=== PATIENT | female | born 1945 | race Caucasian/White ===

== ENCOUNTER 2017-06-07 11:06 | Inpatient (IN) | payer OTHER, MEDICARE ==
[~2017-06-07] VITALS: Ht 152.4 cm; Wt 52.6 kg
[~2017-06-07 11:06] MED LIST: ALPH E MIXED PO; BIOTIN1000 MCG PO; CEPHALEXIN500 MG PO; MAGNESIUM OXID400 MG PO; PHARMASSURE PO; PROLIA60 MG/ML SC; SYNTHROID25 MCG PO; TUMS EX750 MG PO; TYLENOL #31 TAB PO; VITAMIN C500 M3 PO; VITAMIN D32000 I1 PO; VITAMIN K0.1 MG PO
[2017-06-07 13:12] LABS: ABSOLUTE BASOPHIL COUNT 0 /CUMM (0.0-0.2); ABSOLUTE EOSINOPHIL COUNT 0 /CUMM (0.0-0.7); ABSOLUTE GRANULOCYTE CT 19.9 /CUMM (1.4-6.5); ABSOLUTE LYMPH COUNT 1.1 /CUMM (1.2-3.4); ABSOLUTE MONOCYTE COUNT 2.5 /CUMM (0.10-0.60); BASOPHIL % 0.1 % (0.0-2.0); EOSINOPHIL % 0.1 % (0-5); GRANULOCYTE % 84.5 % (42.2-75.2); HEMATOCRIT 39.1 % (37-47); MEAN CORPUSCULAR HGB 29.1 PG (27.0-31.0); MEAN CORPUSCULAR HGB CONC 33.6 G/DL (33.0-37.0); MEAN CORPUSCULAR VOLUME 86.7 FL (81.0-99.0); MEAN PLATELET VOLUME 7.4 FL (7.4-10.4); PLATELET COUNT 325 /CUMM (130-400); RBC DISTRIBUTION WIDTH 13.5 % (11.5-14.5); RED BLOOD CELL CT 4.51 /CUMM (4.20-5.40); WHITE BLOOD CELL COUNT 23.6 /CUMM (4.8-10.8)
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
[2017-06-07] MEDS ORDERED: DICYCLOMINE HCL20 M1 PO (14:49)
[2017-06-07] MEDS ORDERED: ONDANSETRON HCL4 MG PO (14:49)
[2017-06-07] MEDS ORDERED: LOPERAMIDE2 M1 PO (14:50)
[2017-06-07] MEDS ORDERED: LIALDA1.2 G1 PO (14:50)
--- NOTE | 2017-06-07 16:56 | CT SCAN REPORT ---
EXAMINATION: CT ABDOMEN AND PELVIS WITH CONTRAST CLINICAL INFORMATION: Nausea, vomiting, and diarrhea with recent diagnosis of ulcerative colitis. COMPARISON: None available at the time of dictation. TECHNIQUE: Multidetector volumetric imaging was performed of the abdomen and pelvis following IV administration of 95 mL of Optiray 320 intravenous contrast. Sagittal and coronal reformatted images were obtained on the technologist's workstation. EXAMINATION: CT ABDOMEN AND PELVIS WITH IV CONTRAST FINDINGS: Mild atelectasis at the lung bases. The xiphoid process is elongated The liver, spleen, adrenal glands, and pancreas are normal. The gallbladder is surgically absent. There is mild intrahepatic bile or ductal dilatation, likely from the history of cholecystectomy. The kidneys exhibit symmetric nephrograms without evidence of hydronephrosis or nephrolithiasis. No focal renal lesions. There is a pancolitis extending from the cecum to the rectum with the entire colon exhibiting wall thickening, mucosal hyperenhancement, and associated with pericolonic inflammatory change. There are a few sigmoid diverticula. There is no free air. There are multiple enlarged mesenteric and retroperitoneal lymph nodes that are nonspecific, possibly reactive. The pelvic viscera are normal. No pelvic adenopathy. No free fluid within the pelvis. There are no acute osseous abnormalities. 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 Moderate disc volume loss at L4-L5. There is a right femoral epi. Old healed fracture of the right inferior pubic ramus and right pubic bone. Fat-containing ventral abdominal wall hernia. IMPRESSION: - Pancolitis extending from the cecum to the rectum. No bowel obstruction and no free air. - There are multiple enlarged mesenteric and retroperitoneal lymph nodes that are nonspecific, possibly reactive. - The gallbladder is surgically absent. 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 Moderate disc volume loss at L4-L5.
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
[2017-06-07 20:18] VITALS: BP 108/60
[2017-06-08 06:13] VITALS: BP 92/50
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
[2017-06-08 08:31] VITALS: BP 100/50
[2017-06-08 08:57] LABS: ABSOLUTE BASOPHIL COUNT 0 /CUMM (0.0-0.2); ABSOLUTE EOSINOPHIL COUNT 0 /CUMM (0.0-0.7); ABSOLUTE GRANULOCYTE CT 17.9 /CUMM (1.4-6.5); ABSOLUTE LYMPH COUNT 0.5 /CUMM (1.2-3.4); ABSOLUTE MONOCYTE COUNT 1.7 /CUMM (0.10-0.60); BASOPHIL % 0 % (0.0-2.0); EOSINOPHIL % 0 % (0-5); GRANULOCYTE % 89.1 % (42.2-75.2); MEAN CORPUSCULAR HGB 29.7 PG (27.0-31.0); MEAN CORPUSCULAR HGB CONC 33.7 G/DL (33.0-37.0); MEAN CORPUSCULAR VOLUME 88.2 FL (81.0-99.0); MEAN PLATELET VOLUME 7.8 FL (7.4-10.4); PLATELET COUNT 261 /CUMM (130-400); RBC DISTRIBUTION WIDTH 13.5 % (11.5-14.5); WHITE BLOOD CELL COUNT 20.1 /CUMM (4.8-10.8)
[2017-06-08 09:40] LABS: HEMATOCRIT 30.9 % (37-47)
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
[2017-06-08 15:27] VITALS: BP 100/58
[2017-06-08 22:42] VITALS: BP 100/70
[2017-06-09 06:21] VITALS: BP 108/68
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
[2017-06-09 09:16] LABS: ABSOLUTE BASOPHIL COUNT 0 /CUMM (0.0-0.2); ABSOLUTE EOSINOPHIL COUNT 0 /CUMM (0.0-0.7); ABSOLUTE LYMPH COUNT 0.7 /CUMM (1.2-3.4); ABSOLUTE MONOCYTE COUNT 1.6 /CUMM (0.10-0.60); BASOPHIL % 0 % (0.0-2.0); EOSINOPHIL % 0.2 % (0-5); GRANULOCYTE % 89.4 % (42.2-75.2); MEAN CORPUSCULAR HGB 29.3 PG (27.0-31.0); MEAN CORPUSCULAR HGB CONC 33.8 G/DL (33.0-37.0); MEAN CORPUSCULAR VOLUME 86.8 FL (81.0-99.0); PLATELET COUNT 278 /CUMM (130-400); RBC DISTRIBUTION WIDTH 14.1 % (11.5-14.5); RED BLOOD CELL CT 3.46 /CUMM (4.20-5.40); WHITE BLOOD CELL COUNT 22.4 /CUMM (4.8-10.8)
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
[2017-06-09 14:53] VITALS: BP 110/80
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
[2017-06-09 22:35] VITALS: BP 100/60
[2017-06-10 06:12] VITALS: BP 102/64
[2017-06-10 08:38] LABS: ABSOLUTE BASOPHIL COUNT 0 /CUMM (0.0-0.2); ABSOLUTE EOSINOPHIL COUNT 0 /CUMM (0.0-0.7); ABSOLUTE LYMPH COUNT 0.9 /CUMM (1.2-3.4); ABSOLUTE MONOCYTE COUNT 1.1 /CUMM (0.10-0.60); BASOPHIL % 0.1 % (0.0-2.0); EOSINOPHIL % 0 % (0-5); GRANULOCYTE % 90.9 % (42.2-75.2); HEMATOCRIT 29.8 % (37-47); MEAN CORPUSCULAR HGB 29.3 PG (27.0-31.0); MEAN CORPUSCULAR HGB CONC 33.5 G/DL (33.0-37.0); MEAN CORPUSCULAR VOLUME 87.5 FL (81.0-99.0); PLATELET COUNT 288 /CUMM (130-400); RBC DISTRIBUTION WIDTH 14.5 % (11.5-14.5); RED BLOOD CELL CT 3.41 /CUMM (4.20-5.40)
[2017-06-10 08:41] LABS: PT 17.6 SEC (9.4-12.5); PTT 26 SEC (25-37)
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
[2017-06-10 14:31] VITALS: BP 110/80
[2017-06-10 22:21] VITALS: BP 100/60
[2017-06-11 06:25] VITALS: BP 110/70
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
[2017-06-11 09:31] LABS: ABSOLUTE BASOPHIL COUNT 0 /CUMM (0.0-0.2); ABSOLUTE EOSINOPHIL COUNT 0.2 /CUMM (0.0-0.7); ABSOLUTE LYMPH COUNT 1.3 /CUMM (1.2-3.4); ABSOLUTE MONOCYTE COUNT 1.4 /CUMM (0.10-0.60); BASOPHIL % 0 % (0.0-2.0); EOSINOPHIL % 1.2 % (0-5); GRANULOCYTE % 81.7 % (42.2-75.2); HEMATOCRIT 29.8 % (37-47); MEAN CORPUSCULAR HGB 29.3 PG (27.0-31.0); MEAN CORPUSCULAR HGB CONC 33.7 G/DL (33.0-37.0); MEAN CORPUSCULAR VOLUME 87.1 FL (81.0-99.0); MEAN PLATELET VOLUME 7.7 FL (7.4-10.4); PLATELET COUNT 361 /CUMM (130-400); RBC DISTRIBUTION WIDTH 14.7 % (11.5-14.5); RED BLOOD CELL CT 3.42 /CUMM (4.20-5.40); WHITE BLOOD CELL COUNT 15.9 /CUMM (4.8-10.8)
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
[2017-06-11 15:04] VITALS: BP 110/80
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
[2017-06-11 23:00] VITALS: BP 112/80
[2017-06-12 06:39] VITALS: BP 128/70
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
[2017-06-12 09:26] LABS: ABSOLUTE BASOPHIL COUNT 0 /CUMM (0.0-0.2); ABSOLUTE EOSINOPHIL COUNT 0.3 /CUMM (0.0-0.7); ABSOLUTE GRANULOCYTE CT 18.6 /CUMM (1.4-6.5); ABSOLUTE LYMPH COUNT 1.3 /CUMM (1.2-3.4); ABSOLUTE MONOCYTE COUNT 1.3 /CUMM (0.10-0.60); BASOPHIL % 0.1 % (0.0-2.0); EOSINOPHIL % 1.4 % (0-5); GRANULOCYTE % 86.2 % (42.2-75.2); HEMATOCRIT 33.9 % (37-47); MEAN CORPUSCULAR HGB 29.2 PG (27.0-31.0); MEAN CORPUSCULAR HGB CONC 33.8 G/DL (33.0-37.0); MEAN CORPUSCULAR VOLUME 86.5 FL (81.0-99.0); MEAN PLATELET VOLUME 7.5 FL (7.4-10.4); PLATELET COUNT 422 /CUMM (130-400); RBC DISTRIBUTION WIDTH 14.4 % (11.5-14.5); RED BLOOD CELL CT 3.92 /CUMM (4.20-5.40); WHITE BLOOD CELL COUNT 21.5 /CUMM (4.8-10.8)
[2017-06-12 14:00] VITALS: BP 100/90
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
[2017-06-12 22:20] VITALS: BP 115/73
[2017-06-13 06:45] VITALS: BP 108/70
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
[2017-06-13 09:25] LABS: ABSOLUTE BASOPHIL COUNT 0 /CUMM (0.0-0.2); ABSOLUTE EOSINOPHIL COUNT 0.1 /CUMM (0.0-0.7); ABSOLUTE GRANULOCYTE CT 18.5 /CUMM (1.4-6.5); ABSOLUTE MONOCYTE COUNT 1.4 /CUMM (0.10-0.60); BASOPHIL % 0 % (0.0-2.0); EOSINOPHIL % 0.6 % (0-5); HEMATOCRIT 34.2 % (37-47); MEAN CORPUSCULAR HGB 28.9 PG (27.0-31.0); MEAN CORPUSCULAR HGB CONC 33.2 G/DL (33.0-37.0); MEAN CORPUSCULAR VOLUME 86.9 FL (81.0-99.0); MEAN PLATELET VOLUME 7.4 FL (7.4-10.4); PLATELET COUNT 502 /CUMM (130-400); RED BLOOD CELL CT 3.93 /CUMM (4.20-5.40); WHITE BLOOD CELL COUNT 21.1 /CUMM (4.8-10.8)
[2017-06-13 10:50] LABS: GRANULOCYTE % 87.9 % (42.2-75.2)
[2017-06-13 16:45] VITALS: BP 100/60
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
[2017-06-13 22:20] VITALS: BP 116/72
[2017-06-14 06:44] VITALS: BP 94/62
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
[2017-06-14 09:44] LABS: ABSOLUTE BASOPHIL COUNT 0 /CUMM (0.0-0.2); ABSOLUTE EOSINOPHIL COUNT 0.2 /CUMM (0.0-0.7); ABSOLUTE GRANULOCYTE CT 20.3 /CUMM (1.4-6.5); ABSOLUTE LYMPH COUNT 1.1 /CUMM (1.2-3.4); ABSOLUTE MONOCYTE COUNT 1.6 /CUMM (0.10-0.60); BASOPHIL % 0 % (0.0-2.0); EOSINOPHIL % 1.1 % (0-5); HEMATOCRIT 37.2 % (37-47); MEAN CORPUSCULAR HGB CONC 33.3 G/DL (33.0-37.0); MEAN PLATELET VOLUME 7.4 FL (7.4-10.4); RED BLOOD CELL CT 4.28 /CUMM (4.20-5.40); WHITE BLOOD CELL COUNT 23.2 /CUMM (4.8-10.8)
[2017-06-14 10:41] LABS: GRANULOCYTE % 87.2 % (42.2-75.2); PLATELET COUNT 555 /CUMM (130-400)
[2017-06-14 14:39] VITALS: BP 95/60
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
[2017-06-14 22:14] VITALS: BP 100/64
--- NOTE | 2017-06-14 22:40 | PN- Gastroenterology ---
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 L MCV (81.0 - 99.0 FL) 86.5 MCH (27.0 - 31.0 PG) 29.2 MCHC (33.0 - 37.0 G/DL) 33.8 RDW (11.5 - 14.5 %) 14.4 Plt Count (130 - 400 /CUMM) 422 H MPV (7.4 - 10.4 FL) 7.5 Gran % (42.2 - 75.2 %) 86.2 H Lymphocytes % (20.5 - 51.1 %) 6.2 L Monocytes % (1.7 - 9.3 %) 6.1 Eosinophils % (0 - 5 %) 1.4 Basophils % (0.0 - 2.0 %) 0.1 Absolute Granulocytes (1.4 - 6.5 /CUMM) 18.6 H Segmented Neutrophils (42.2 - 75.2 %) 83 H Band Neutrophils (0.0 - 5.0 %) 1 Absolute Lymphocytes (1.2 - 3.4 /CUMM) 1.3 Lymphocytes (20.5 - 51.1 %) 7 L Monocytes (1.7 - 9.3 %) 6 Absolute Monocytes (0.10 - 0.60 /CUMM) 1.3 H Eosinophils (0 - 5.0 %) 1 Absolute Eosinophils (0.0 - 0.7 /CUMM) 0.3 Absolute Basophils (0.0 - 0.2 /CUMM) 0 Metamyelocytes (0.0 - 1.0 %) 1 Myelocytes (0 - 0 %) 1 H Platelet Estimate (ADEQUATE) VERIFIED BY SMEAR Polychromasia 1+ Anisocytosis 1+ Imaging/Other Studies: 06/07/17: EKG-ST @ 114, baseline artifact, mild inf Q waves, NSST, PRWP. 06/07/17: CT ABD & PELVIS W IV CONTRAST- IMPRESSION: *Pancolitis extending from the cecum to the rectum. No bowel obstruction and no free air. No megacolon. Few sigmoid diverticula, without diverticulitis. Fat-containing ventral abdominal wall hernia. There are multiple enlarged mesenteric and retroperitoneal lymph nodes that are nonspecific, possibly reactive. No ascites. The gallbladder is surgically absent. Mild postop dilated IHD. Mild bibasilar atelectasis. Right femoral epi. Old healed fracture of the right inferior pubic ramus and right pubic bone. 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 Moderate disc volume loss at L4-L5.
[2017-06-15 06:49] VITALS: BP 100/68
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
[2017-06-15 09:16] LABS: ABSOLUTE BASOPHIL COUNT 0 /CUMM (0.0-0.2); ABSOLUTE EOSINOPHIL COUNT 0.1 /CUMM (0.0-0.7); ABSOLUTE GRANULOCYTE CT 19.3 /CUMM (1.4-6.5); ABSOLUTE LYMPH COUNT 0.7 /CUMM (1.2-3.4); ABSOLUTE MONOCYTE COUNT 1.1 /CUMM (0.10-0.60); BASOPHIL % 0.1 % (0.0-2.0); EOSINOPHIL % 0.3 % (0-5); HEMATOCRIT 35.6 % (37-47); MEAN CORPUSCULAR HGB CONC 33.2 G/DL (33.0-37.0); MEAN CORPUSCULAR VOLUME 87.4 FL (81.0-99.0); MEAN PLATELET VOLUME 7.2 FL (7.4-10.4); PLATELET COUNT 647 /CUMM (130-400); RBC DISTRIBUTION WIDTH 14.8 % (11.5-14.5); RED BLOOD CELL CT 4.07 /CUMM (4.20-5.40); WHITE BLOOD CELL COUNT 21.2 /CUMM (4.8-10.8)
--- NOTE | 2017-06-15 10:48 | PN- Infect Dx ---
Subjective Subjective: Afebrile. She offers no complaints but continues to have watery diarrhea, with 7 bowel movements reported yesterday and 2 overnight. She does not report any abdominal discomfort. Objective Last 24 Hrs of Vital Signs/I&O Vital Signs Date Time Temp Pulse Resp B/P B/P Pulse O2 O2 Flow FiO2 Mean Ox Delivery Rate 06/15 0649 98.1 114 20 100/68 97 Room Air 06/14 2214 98.0 107 22 100/64 96 Room Air 06/14 1439 98.5 85 20 95/60 95 Intake & Output 06/15 1600 06/15 0800 06/15 0000 Intake Total 250 Output Total 300 Balance -50 Intake, Oral 250 Number 2 1 Bowel Movements Output, Urine 300 Physical Exam Other Physical Findings: She appears comfortable in no acute distress Lungs are clear Heart regular rhythm with no murmur Abdomen is soft, nontender with positive bowel sounds Extremities no cyanosis, clubbing or edema Results Last 24 Hours of Lab Results: Laboratory Tests 06/15 0840 Chemistry Sodium (137 - 145 mmol/L) 138 Potassium (3.5 - 5.1 mmol/L) 3.9 Chloride (98 - 107 mmol/L) 97 L Carbon Dioxide (22 - 30 mmol/L) 23 Anion Gap (5 - 16) 18 H BUN (7 - 17 mg/dL) 9 Creatinine (0.5 - 1.0 mg/dL) 0.5 Estimated GFR (>60 ml/min) > 60 BUN/Creatinine Ratio (7 - 25 %) 18.0 Total Bilirubin (0.2 - 1.3 mg/dL) 0.6 Direct Bilirubin (< 0.4 mg/dL) 0.5 H AST (14 - 36 U/L) 13 L ALT (9 - 52 U/L) 21 Alkaline Phosphatase (<127 U/L) 115 Total Protein (6.3 - 8.2 g/dL) 6.4 Albumin (3.5 - 5.0 g/dL) 2.8 L Hematology CBC w Diff MAN DIFF ORDERED WBC (4.8 - 10.8 /CUMM) 21.2 H RBC (4.20 - 5.40 /CUMM) 4.07 L Hgb (12.0 - 16.0 G/DL) 11.8 L Hct (37 - 47 %) 35.6 L MCV (81.0 - 99.0 FL) 87.4 MCH (27.0 - 31.0 PG) 29.0 MCHC (33.0 - 37.0 G/DL) 33.2 RDW (11.5 - 14.5 %) 14.8 H Plt Count (130 - 400 /CUMM) 647 H MPV (7.4 - 10.4 FL) 7.2 L Gran % (42.2 - 75.2 %) 91.0 H Lymphocytes % (20.5 - 51.1 %) 3.3 L Monocytes % (1.7 - 9.3 %) 5.3 Eosinophils % (0 - 5 %) 0.3 Basophils % (0.0 - 2.0 %) 0.1 Absolute Granulocytes (1.4 - 6.5 /CUMM) 19.3 H Segmented Neutrophils (42.2 - 75.2 %) 84 H Band Neutrophils (0.0 - 5.0 %) 5 Absolute Lymphocytes (1.2 - 3.4 /CUMM) 0.7 L Lymphocytes (20.5 - 51.1 %) 6 L Monocytes (1.7 - 9.3 %) 5 Absolute Monocytes (0.10 - 0.60 /CUMM) 1.1 H Absolute Eosinophils (0.0 - 0.7 /CUMM) 0.1 Absolute Basophils (0.0 - 0.2 /CUMM) 0 Platelet Estimate (ADEQUATE) INCREASED Normocytic RBCs VERIFIED Normochromic RBCs VERIFIED Polychromasia Last 24 Hours of Thomas Results: No recent cultures Assessment/Plan ID Impression: Stable, with temperatures remaining normal but with a persistent leukocytosis, now on po Vancomycin, began yesterday after 5 days of Fidaxomicin and Flagyl, for C. difficile colitis, though suspect that her persistent diarrhea and leukocytosis may be secondary to ulcerative colitis, not responsive to both oral and rectal mesalamine. She is scheduled for a flexible sigmoidoscopy later today, which should help clarify the etiology of her persistent diarrhea. Suggestion: 1. Await sigmoidoscopy later today 2. Continue po Vancomycin
--- NOTE | 2017-06-15 13:32 | Proc Note Colonoscopy ---
Colonoscopy Procedure Medical History: unchanged (see meditech consult) Mental Status: alert/oriented Heart/Lung Eval Prior to Sedation: within normal limits Candidate for Sedation? Yes Date of Last Colonoscopy: Approximately one month ago in [place]. Procedure Date: 06/15/17 Procedure Type: flexible sigmoidoscopy with biopsies. Can Maker: Frank Buitrago MD. ASA Classification: III Indications: Diarrhea in a patient with newly diagnosed ulcerative colitis and also found to have c. diff by PCR in spite of a negative stool toxin. Instrument (Colonoscope): single channel Meds Received: MAC Patient's Tolerance: good Complications: none Extent Reached: 70 cm from the anus Prep: good Procedure: The risks of a colonoscopy was explained to the patient including, but not limited to, the risks of perforation, bleeding and/or a missed lesion and then written informed consent was obtained. After getting written informed consent the patient was placed in the left lateral decubitus position with pulse oximetry, cardiac monitoring, and supplemental oxygen was given. IV sedation was given until the desired effect was achieved. A rectal exam was performed which was normal. A high definition variable stiffness Olympus colonoscope was then inserted into the anus and advanced to 70 cm from the anus with little difficulty. Retroflexed views were obtained and photodocumentation was obtained. Close inspection of the colonic mucosa was performed on insertion and withdrawal of the colonoscope with a withdrawal time that was adequate in length to closely inspect all folds and russo of the colon. Findings: The colonic mucosa starting in the rectum and extending to 70 cm from the anus was inflamed with a cobblestone appearance and superficial ulcerations. In some areas there was an overlying exudate which easily washed away when irrigated and there were no obvious pseudomembranes appreciated. The inflammatory changes were continuous from the rectum to 70 cm from the anus with the changes being more pronounced proximal to 30 cm from the anus. Random biopsies were obtained from the colon at 70 cm, 50 cm, 30 cm, in the rectosigmoid colon and rectum with cold biopsy forceps and were sent to pathology for further evaluation. There was an isolated diverticulum appreciated in the sigmoid colon. There were no polyps or masses seen. Retroflexed views in the rectum revealed small internal hemorrhoids with hypertrophied anal papilla. Impression: 1. Findings suggestive of active ulcerative colitis with relative sparing in the rectum likely secondary to the enemas she is receiving status post random biopsies. 2. Overlying exudate, but no obvious pseudomembranes appreciated. 3. Mild sigmoid diverticulosis. 3. Small internal hemorrhoids with hypertophied anal papilla. Recommendations: 1. Would continue maximum dose oral mesalamine and [place] enemas at night. 2. Would complete a 14 day course of vancomycin for C. difficile. 3. Follow up the pathology results 3. If patient's diarrhea persists in spite of of 5-ASA preparations and treatment for C. difficile strong consideration should be given to restart the patient's IV steroids (got one dose in the ER). 4. Low residue diet as tolerated. 5. Analgesia as needed. 6. Would avoid anti-diarrheal agents at present so that her symptoms can be more accurately followed. CC: Carolynn DE LA GARZA,Stefano Baez
[2017-06-15 14:13] VITALS: BP 100/70
[2017-06-15 23:17] VITALS: BP 114/68
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
[2017-06-16 06:41] VITALS: BP 104/64
[2017-06-16 09:04] LABS: ABSOLUTE BASOPHIL COUNT 0 /CUMM (0.0-0.2); ABSOLUTE EOSINOPHIL COUNT 0 /CUMM (0.0-0.7); ABSOLUTE GRANULOCYTE CT 12.4 /CUMM (1.4-6.5); ABSOLUTE LYMPH COUNT 0.5 /CUMM (1.2-3.4); ABSOLUTE MONOCYTE COUNT 0.2 /CUMM (0.10-0.60); BASOPHIL % 0 % (0.0-2.0); EOSINOPHIL % 0 % (0-5); GRANULOCYTE % 94.1 % (42.2-75.2); HEMATOCRIT 34.3 % (37-47); MEAN CORPUSCULAR HGB 28.9 PG (27.0-31.0); MEAN CORPUSCULAR HGB CONC 33.5 G/DL (33.0-37.0); MEAN CORPUSCULAR VOLUME 86.5 FL (81.0-99.0); MEAN PLATELET VOLUME 7.1 FL (7.4-10.4); PLATELET COUNT 652 /CUMM (130-400); RBC DISTRIBUTION WIDTH 15.4 % (11.5-14.5); RED BLOOD CELL CT 3.97 /CUMM (4.20-5.40)
--- NOTE | 2017-06-16 09:09 | PN- Gastroenterology ---
Assessment/Plan GI Assessment/Recommendations: Assessment: Ms. Robertson is a 71 year old female recently diagnosed with ulcerative colitis on a colonoscopy in [place] who has been admitted with a flare for the past week which at least in part is exacerbated by superimposed c. diff colitis. Her flex sig yesterday showed changes more consistent with an IBD flare so I feel her colitis treatment should be stepped up with systemic steroids which were started last night. I also feel she should have continued treatment of her c. diff with oral vanco. While there is a concern that the steroids could exacerbate the c. diff there is really no strong data to support this and considering she has been on treatment for c. diff now for the past 6-7 days I feel the potential benefit of steroids outweighs the risks. Recommendations: 1. Continue IV solumederol 40mg bid fow now 2. Continue PO vanco as per ID. 3. Ok to continue questran, but would make sure it is given inbetween doses of the vanco and mesalamine as to not interfere with their absorption. 4. Continue mesalamine PO and enemas 5. Would check a hep b [place] and a interferon gamma assay in case biologics are ultimately needed. 6. Follow up lytes and replete as needed 7. Analgesia as needed. 8. Low residue diet as tolerated. I will continue to follow this patient and make further recommendations based on her clinical course and results of repeat blood work. Subjective Subjective: pt s/p flex sig yesterday which showed cameron-colitis more consistent in appearance with UC then c. diff (ie. no pseudomembranes). She was started on IV solumederol last night and so far has recieved one dose. She continues to complain of diarrhea without significant bleeding. Mild abdominal discomfort. No vomiting. Objective Vital Signs and I&Os Vital Signs Date Time Temp Pulse Resp B/P B/P Pulse O2 O2 Flow FiO2 Mean Ox Delivery Rate 06/16 0641 98.1 84 18 104/64 96 Room Air 06/15 2317 98.4 84 16 114/68 95 Room Air 06/15 1413 98.2 86 20 100/70 95 Room Air Intake & Output 06/16 1600 06/16 0400 06/15 1600 06/15 0400 06/14 1600 06/14 0400 Intake Total 240 240 250 330 300 Output Total 300 450 300 Balance 240 240 -50 -120 0 Intake, Oral 240 240 250 330 300 Number 0 2 2 1 6 2 Bowel Movements Output, Urine 300 450 300 Physical Exam General Appearance: well developed/nourished, no apparent distress, alert, comfortable Head: atraumatic Neck: normal inspection, supple Respiratory: normal breath sounds, chest non-tender Cardiovascular: regular rate/rhythm Abdomen: normal bowel sounds, soft, tenderness, mild tenderness to deep palpation. Back: normal inspection Extremities: pedal edema Skin: intact, normal color Current Medications: Current Medications Sig/Franklyn Start time Last Medication Dose Route Stop Time Status Admin Acetaminophen 650 MG Q6-PRN PRN 06/07 2100 AC 06/08 PO 1813 Chlorhexidine 1 GM .STK-MED ONE 06/15 1417 DC Gluconate TOP 06/15 1418 Cholestyramine Resin 1 PAC WMBID 06/13 1700 DC 06/15 PO 1401 Dextrose/Sodium 1,000 ML Q10H 06/15 1000 DC 06/15 Chloride IV 1014 Dicyclomine HCl 20 MG 4 TIMES/DAY 06/07 2100 DC 06/15 PO 1400 Enoxaparin Sodium 40 MG DAILY 06/08 0900 AC 06/15 SC 1011 Levothyroxine Sodium 0.025 MG DAILY AC 06/08 0700 AC 06/16 PO 0544 Mesalamine 4 GM AT BEDTIME 06/09 2100 AC 06/15 [place] 2111 Mesalamine 1,000 MG 4 TIMES/DAY 06/08 0900 AC 06/15 PO 2111 Methylprednisolone 40 MG Q12 06/15 2100 AC 06/15 IV 2111 Nystatin 5 ML 4 TIMES/DAY 06/15 1433 AC 06/15 PO 2111 Ondansetron HCl 4 MG Q8P PRN 06/07 1915 AC 06/15 IV 1409 Potassium Chloride 40 MEQ DAILY 06/09 1630 AC 06/15 PO 1011 Vancomycin HCl 125 MG Q6 06/14 1816 AC 06/16 PO 0544 Results Pertinent Lab Results: Laboratory Tests 06/16 06/15 0836 0840 Chemistry Sodium (137 - 145 mmol/L) Pending 138 Potassium (3.5 - 5.1 mmol/L) Pending 3.9 Chloride (98 - 107 mmol/L) Pending 97 L Carbon Dioxide (22 - 30 mmol/L) Pending 23 Anion Gap (5 - 16) Pending 18 H BUN (7 - 17 mg/dL) Pending 9 Creatinine (0.5 - 1.0 mg/dL) Pending 0.5 Estimated GFR (>60 ml/min) > 60 BUN/Creatinine Ratio (7 - 25 %) Pending 18.0 Total Bilirubin (0.2 - 1.3 mg/dL) Pending 0.6 Direct Bilirubin (< 0.4 mg/dL) Pending 0.5 H AST (14 - 36 U/L) Pending 13 L ALT (9 - 52 U/L) Pending 21 Alkaline Phosphatase (<127 U/L) Pending 115 Total Protein (6.3 - 8.2 g/dL) Pending 6.4 Albumin (3.5 - 5.0 g/dL) Pending 2.8 L Hematology CBC w Diff Pending MAN DIFF ORDERED WBC (4.8 - 10.8 /CUMM) Pending 21.2 H RBC (4.20 - 5.40 /CUMM) Pending 4.07 L Hgb (12.0 - 16.0 G/DL) Pending 11.8 L Hct (37 - 47 %) Pending 35.6 L MCV (81.0 - 99.0 FL) Pending 87.4 MCH (27.0 - 31.0 PG) Pending 29.0 MCHC (33.0 - 37.0 G/DL) Pending 33.2 RDW (11.5 - 14.5 %) Pending 14.8 H Plt Count (130 - 400 /CUMM) Pending 647 H MPV (7.4 - 10.4 FL) Pending 7.2 L Gran % (42.2 - 75.2 %) 91.0 H Lymphocytes % (20.5 - 51.1 %) 3.3 L Monocytes % (1.7 - 9.3 %) 5.3 Eosinophils % (0 - 5 %) 0.3 Basophils % (0.0 - 2.0 %) 0.1 Absolute Granulocytes (1.4 - 6.5 /CUMM) 19.3 H Segmented Neutrophils (42.2 - 75.2 %) 84 H Band Neutrophils (0.0 - 5.0 %) 5 Absolute Lymphocytes (1.2 - 3.4 /CUMM) 0.7 L Lymphocytes (20.5 - 51.1 %) 6 L Monocytes (1.7 - 9.3 %) 5 Absolute Monocytes (0.10 - 0.60 /CUMM) 1.1 H Absolute Eosinophils (0.0 - 0.7 /CUMM) 0.1 Absolute Basophils (0.0 - 0.2 /CUMM) 0 Platelet Estimate (ADEQUATE) INCREASED Normocytic RBCs VERIFIED Normochromic RBCs VERIFIED Polychromasia 06/14 06/13 0827 1352 Chemistry Sodium (137 - 145 mmol/L) 136 L Potassium (3.5 - 5.1 mmol/L) 4.1 Chloride (98 - 107 mmol/L) 97 L Carbon Dioxide (22 - 30 mmol/L) 24 Anion Gap (5 - 16) 15 BUN (7 - 17 mg/dL) 8 Creatinine (0.5 - 1.0 mg/dL) 0.5 Estimated GFR (>60 ml/min) > 60 BUN/Creatinine Ratio (7 - 25 %) 16.0 Hematology CBC w Diff NO MAN DIFF REQ WBC (4.8 - 10.8 /CUMM) 23.2 H RBC (4.20 - 5.40 /CUMM) 4.28 Hgb (12.0 - 16.0 G/DL) 12.4 Hct (37 - 47 %) 37.2 MCV (81.0 - 99.0 FL) 87.0 MCH (27.0 - 31.0 PG) 29.0 MCHC (33.0 - 37.0 G/DL) 33.3 RDW (11.5 - 14.5 %) 15.0 H Plt Count (130 - 400 /CUMM) 555 H MPV (7.4 - 10.4 FL) 7.4 Gran % (42.2 - 75.2 %) 87.2 H Lymphocytes % (20.5 - 51.1 %) 4.8 L Monocytes % (1.7 - 9.3 %) 6.9 Eosinophils % (0 - 5 %) 1.1 Basophils % (0.0 - 2.0 %) 0 Absolute Granulocytes (1.4 - 6.5 /CUMM) 20.3 H Absolute Lymphocytes (1.2 - 3.4 /CUMM) 1.1 L Absolute Monocytes (0.10 - 0.60 /CUMM) 1.6 H Absolute Eosinophils (0.0 - 0.7 /CUMM) 0.2 Absolute Basophils (0.0 - 0.2 /CUMM) 0 Urines Urine Color (YEL,AMB,STR) YEL Urine Clarity (CLEAR) CLEAR Urine pH (5.0 - 8.0) 6.5 Ur Specific [place] (1.001 - 1.035) 1.025 Urine Protein (NEG,<30 MG/DL) TRACE H Urine Ketones (NEG) 40 H Urine Nitrite (NEG) POS H Urine Bilirubin (NEG) NEG Urine Urobilinogen (0.1 - 1.0 EU/dl) 0.2 Ur Leukocyte Esterase (NEG) NEG Ur Microscopic SEDIMENT EXAMINED Urine WBC (0 - 2 /HPF) 1-3 H Ur Epithelial Cells (NONE,FEW) FEW Urine Bacteria (NEG/NONE) FEW H Urine Hemoglobin (NEG) NEG Urine Glucose (N MG/DL) NEG 06/13 1352 Urines Urine Osmolality (300 - 1000 MOSM/KG) 590 Ur Random Creatinine (mg/dL) 79.6 Ur Random Sodium (30 - 90 mmol/L) 156 H Ur Random Potassium (mmol/L) 27.2 Fraction Sodium Excret (<1% %) 0.6
[2017-06-16 10:42] LABS: WHITE BLOOD CELL COUNT 13.1 /CUMM (4.8-10.8)
[2017-06-16 14:36] VITALS: BP 118/68
--- NOTE | 2017-06-16 15:09 | PN- Att Addend ---
Attending Addendum Attending Brief Note Covering attending note: Patient feeling a little better, trying to eat as much as possible, not much pain patient is afebrile, her vital signs are stable. Earlier this morning she had a diarrheal bowel movement around lunchtime had for the first time a soft bowel movement. Her abdomen is soft white count is 13,100 to continue meant as per GI and infectious diseases recommendations Intake & Output 06/16 1600 06/16 0400 06/15 0400 06/14 1600 06/14 0400 Intake Total 240 240 250 330 300 Output Total 300 450 300 Balance 240 240 -50 -120 0 Intake, Oral 240 240 250 330 300 Number 2 2 2 1 6 2 Bowel Movements Output, Urine 300 450 300 Current Medications Sig/Frank[place] Start time Last Medication Dose Route Stop Time Status Admin Acetaminophen 650 MG Q6-PRN PRN 06/07 2099 AC 06/08 PO 1813 Dextrose/Sodium 1,000 ML Q10H 06/15 1000 DC 06/15 Chloride IV 1014 Enoxaparin Sodium 40 MG DAILY 06/08 09 AC 06/16 SC 0941 Levothyroxine Sodium 0.025 MG DAILY AC 06/08 0700 AC 06/16 PO 0544 Mesalamine 4 GM AT BEDTIME 06/09 2099 AC 06/15 [place] 2111 Mesalamine 1,000 MG 4 TIMES/DAY 06/08 09 AC 06/16 PO 1233 Methylprednisolone 40 MG Q12 06/15 2100 AC 06/16 IV 0944 Nystatin 5 ML 4 TIMES/DAY 06/15 1433 AC 06/16 PO 1233 Ondansetron HCl 4 MG Q8P PRN 06/07 1915 AC 06/15 IV 1409 Potassium Chloride 40 MEQ DAILY 06/09 1630 AC 06/16 PO 0942 Vancomycin HCl 125 MG Q6 06/14 1816 AC 06/16 PO 1233 Laboratory Tests 06/16/17 0836: Anion Gap 13, Estimated GFR > 60, BUN/Creatinine Ratio 20.0, Total Bilirubin 0.5 , Direct Bilirubin 0.5 H, AST 11 L, ALT 19, Alkaline Phosphatase 102, Total Protein 6.1 L, Albumin 2.7 L, CBC w Diff NO MAN DIFF REQ, RBC 3.97 L, MCV 86.5, MCH 28.9, MCHC 33.5, RDW 15.4 H, MPV 7.1 L, Gran % 94.1 H, Lymphocytes % 4.1 L, Monocytes % 1.8, Eosinophils % 0, Basophils % 0, Absolute Granulocytes 12.4 H, Absolute Lymphocytes 0.5 L, Absolute Monocytes 0.2, Absolute Eosinophils 0, Absolute Basophils 0 06/15/17 0840: Anion Gap 18 H, Estimated GFR > 60, BUN/Creatinine Ratio 18.0, Total Bilirubin 0.6, Direct Bilirubin 0.5 H, AST 13 L, ALT 21, Alkaline Phosphatase 115, Total Protein 6.4, Albumin 2.8 L, CBC w Diff MAN DIFF ORDERED, RBC 4.07 L, MCV 87.4, MCH 29.0, MCHC 33.2, RDW 14.8 H, MPV 7.2 L, Gran % 91.0 H, Lymphocytes % 3.3 L, Monocytes % 5.3, Eosinophils % 0.3, Basophils % 0.1, Absolute Granulocytes 19.3 H, Segmented Neutrophils 84 H, Band Neutrophils 5, Absolute Lymphocytes 0.7 L, Lymphocytes 6 L, Monocytes 5, Absolute Monocytes 1.1 H, Absolute Eosinophils 0.1, Absolute Basophils 0, Platelet Estimate INCREASED, Normocytic RBCs VERIFIED, Normochromic RBCs VERIFIED, Polychromasia 06/14/17 0827: Anion Gap 15, Estimated GFR > 60, BUN/Creatinine Ratio 16.0, CBC w Diff NO MAN DIFF REQ, RBC 4.28, MCV 87.0, MCH 29.0, MCHC 33.3, RDW 15.0 H, MPV 7.4, Gran % 87.2 H, Lymphocytes % 4.8 L, Monocytes % 6.9, Eosinophils % 1.1, Basophils % 0 , Absolute Granulocytes 20.3 H, Absolute Lymphocytes 1.1 L, Absolute Monocytes 1.6 H, Absolute Eosinophils 0.2, Absolute Basophils 0 Vital Signs Date Time Temp Pulse Resp B/P B/P Pulse O2 O2 Flow FiO2 Mean Ox Delivery Rate 06/16 1436 97.8 110 20 118/68 96 06/16 0800 96 Room Air 06/16 0641 98.1 84 18 104/64 96 Room Air 06/15 2317 98.4 84 16 114/68 95 Room Air
[2017-06-16 22:58] VITALS: BP 100/62
[2017-06-17 06:55] VITALS: BP 104/70
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
[2017-06-17 09:17] LABS: ABSOLUTE BASOPHIL COUNT 0 /CUMM (0.0-0.2); ABSOLUTE EOSINOPHIL COUNT 0 /CUMM (0.0-0.7); ABSOLUTE GRANULOCYTE CT 11.6 /CUMM (1.4-6.5); ABSOLUTE LYMPH COUNT 0.8 /CUMM (1.2-3.4); ABSOLUTE MONOCYTE COUNT 0.3 /CUMM (0.10-0.60); BASOPHIL % 0 % (0.0-2.0); EOSINOPHIL % 0 % (0-5); GRANULOCYTE % 91.3 % (42.2-75.2); MEAN CORPUSCULAR HGB 28.7 PG (27.0-31.0); MEAN CORPUSCULAR HGB CONC 33.2 G/DL (33.0-37.0); MEAN CORPUSCULAR VOLUME 86.5 FL (81.0-99.0); MEAN PLATELET VOLUME 7.3 FL (7.4-10.4); PLATELET COUNT 781 /CUMM (130-400); RBC DISTRIBUTION WIDTH 15.1 % (11.5-14.5); RED BLOOD CELL CT 4.05 /CUMM (4.20-5.40); WHITE BLOOD CELL COUNT 12.7 /CUMM (4.8-10.8)
--- NOTE | 2017-06-17 10:10 | PN- Infect Dx ---
Subjective Subjective: Afebrile on steroids. She feels improved with decreased diarrhea. Objective Last 24 Hrs of Vital Signs/I&O Vital Signs Date Time Temp Pulse Resp B/P B/P Pulse O2 O2 Flow FiO2 Mean Ox Delivery Rate 06/17 0655 97.9 98 16 104/70 96 Room Air 06/16 2258 97.6 100 20 100/62 96 Room Air 06/16 1436 97.8 110 20 118/68 96 Intake & Output 06/17 1600 06/17 0800 06/17 0000 Intake Total 120 120 Output Total 201 Balance 120 -81 Intake, IV 20 20 Intake, Oral 100 100 Number 1 Bowel Movements Output, Stool 1 Output, Urine 200 Physical Exam Other Physical Findings: She appears comfortable in no acute distress Lungs are clear Heart rapid heart rate with no murmur Abdomen is soft, nontender with positive bowel sounds Extremities no cyanosis, clubbing or edema Results Last 24 Hours of Lab Results: Laboratory Tests 06/17 06/17 0909 0755 Chemistry Sodium (137 - 145 mmol/L) 139 Potassium (3.5 - 5.1 mmol/L) 5.1 Chloride (98 - 107 mmol/L) 99 Carbon Dioxide (22 - 30 mmol/L) 25 Anion Gap (5 - 16) 15 BUN (7 - 17 mg/dL) 18 H Creatinine (0.5 - 1.0 mg/dL) 0.5 Estimated GFR (>60 ml/min) > 60 BUN/Creatinine Ratio (7 - 25 %) 36.0 H Troponin I (< 0.11 ng/ml) Cancelled < 0.01 Hematology CBC w Diff Pending WBC Pending RBC Pending Hgb Pending Hct Pending MCV Pending MCH Pending MCHC Pending RDW Pending Plt Count Pending MPV Pending Gran % Pending Lymphocytes % Pending Monocytes % Pending Eosinophils % Pending Basophils % Pending Absolute Granulocytes Pending Absolute Lymphocytes Pending Absolute Monocytes Pending Absolute Eosinophils Pending Absolute Basophils Pending Last 24 Hours of Thomas Results: No recent cultures Assessment/Plan ID Impression: Appears to be improving, with temperatures remaining normal and with her white blood cell count yesterday decreased despite the initiation of steroids 2 days ago for a presumed flareup of her ulcerative colitis, suggested by the findings on the recent sigmoidoscopy. She remains on po Vancomycin, now Day 8 of treatment for C. difficile colitis, initially treated with Fidaxomicin and Flagyl. Her heart rate is noted to be increased and this is to be further evaluated. Suggestion: 1. Further evaluation of her tachycardia per Medicine 2. Follow-up biopsies from her recent sigmoidoscopy 3. Continue po Vancomycin
--- NOTE | 2017-06-17 11:30 | PN- Gastroenterology ---
Assessment/Plan GI Assessment/Recommendations: Assessment: Ms. Robertson is a 71 year old female recently diagnosed with UC currently admitted for a flare either exacerbated by, or at least complicated by , c diff colitis who is currenlty doing well and improving on IV solumederol. In addition to her symptoms improving her WBC has also improved which in and of itself doesn't necessarily mean anything, but it is at least suggestive that the inc WBC was reactive to inflammation from her colitis and not from infectious causes. As she is now improving I am hopeful that she will be able to be changed over to oral medications and be discharged home in a few days. Recommendations: 1. Continue IV solumederol for another 24-48 hours 2. Continue PO vanco to complete a 14 day course or as per ID 3. Advance diet as tolerated 4. Continue po and pr mesalamine for now at current doses 5. DVT prophylaxis 6. Ok to continue questran as needed, but would ensure it is being given separate from the doses of vanco and mesalamine 7. Follow electrolytes and repelet as needed I will continue to follow this patient and make further recommendations based on her clinical course and results of repeat blood work. Problem List: 1. C. difficile colitis 2. Ulcerative colitis 3. Diarrhea Subjective Subjective: pt doing well from a GI perspective; still with some loose stool, but overall she notes it is improving. no abdominal pain and she is without vomiting Objective Vital Signs and I&Os Vital Signs Date Time Temp Pulse Resp B/P B/P Pulse O2 O2 Flow FiO2 Mean Ox Delivery Rate 06/17 0655 97.9 98 16 104/70 96 Room Air 06/16 2258 97.6 100 20 100/62 96 Room Air 06/16 1436 97.8 110 20 118/68 96 Intake & Output 06/17 1600 06/17 0400 06/16 1600 06/16 0400 06/15 1600 06/15 0400 Intake Total 120 120 240 240 250 Output Total 201 300 Balance 120 -81 240 240 -50 Intake, IV 20 20 Intake, Oral 100 100 240 240 250 Number 1 2 2 2 1 Bowel Movements Output, Stool 1 Output, Urine 200 300 Physical Exam General Appearance: no apparent distress, alert, comfortable Head: normal appearance, temporal wasting Neck: normal inspection, supple Respiratory: normal breath sounds, chest non-tender Cardiovascular: regular rate/rhythm Abdomen: normal bowel sounds, soft, non-tender, no organomegaly Extremities: no edema Skin: intact, normal color Current Medications: Current Medications Sig/[place] Start time Last Medication Dose Route Stop Time Status Admin Acetaminophen 650 MG Q6-PRN PRN 06/07 2100 AC 06/17 PO 1052 Enoxaparin Sodium 40 MG DAILY 06/08 09 AC 06/17 [place] 0903 Levothyroxine Sodium 0.025 MG DAILY AC 06/08 0700 AC 06/17 PO 0607 Mesalamine 4 GM AT BEDTIME 06/09 2099 AC 06/16 [place] 2134 Mesalamine 1,000 MG 4 TIMES/DAY 06/08 09 AC 06/17 PO 0902 Methylprednisolone 40 MG Q12 06/15 2100 AC 06/17 IV 0901 Nystatin 5 ML 4 TIMES/DAY 06/15 1433 AC 06/17 PO 0902 Ondansetron HCl 4 MG Q8P PRN 06/07 1915 AC 06/15 IV 1409 Potassium Chloride 40 MEQ DAILY 06/09 1630 AC 06/17 PO 0903 Vancomycin HCl 125 MG Q6 06/14 181 AC 06/17 PO 0647 Results Pertinent Lab Results: Laboratory Tests 06/17 06/17 0909 0755 Chemistry Sodium (137 - 145 mmol/L) 139 Potassium (3.5 - 5.1 mmol/L) 5.1 Chloride (98 - 107 mmol/L) 99 Carbon Dioxide (22 - 30 mmol/L) 25 Anion Gap (5 - 16) 15 BUN (7 - 17 mg/dL) 18 H Creatinine (0.5 - 1.0 mg/dL) 0.5 Estimated GFR (>60 ml/min) > 60 BUN/Creatinine Ratio (7 - 25 %) 36.0 H Troponin I (< 0.11 ng/ml) Cancelled < 0.01 Hematology CBC w Diff MAN DIFF ORDERED WBC (4.8 - 10.8 /CUMM) 12.7 H RBC (4.20 - 5.40 /CUMM) 4.05 L Hgb (12.0 - 16.0 G/DL) 11.6 L Hct (37 - 47 %) 35.0 L MCV (81.0 - 99.0 FL) 86.5 MCH (27.0 - 31.0 PG) 28.7 MCHC (33.0 - 37.0 G/DL) 33.2 RDW (11.5 - 14.5 %) 15.1 H Plt Count (130 - 400 /CUMM) 781 H MPV (7.4 - 10.4 FL) 7.3 L Gran % (42.2 - 75.2 %) 91.3 H Lymphocytes % (20.5 - 51.1 %) 6.7 L Monocytes % (1.7 - 9.3 %) 2.0 Eosinophils % (0 - 5 %) 0 Basophils % (0.0 - 2.0 %) 0 Absolute Granulocytes (1.4 - 6.5 /CUMM) 11.6 H Segmented Neutrophils (42.2 - 75.2 %) Pending Absolute Lymphocytes (1.2 - 3.4 /CUMM) 0.8 L Absolute Monocytes (0.10 - 0.60 /CUMM) 0.3 Absolute Eosinophils (0.0 - 0.7 /CUMM) 0 Absolute Basophils (0.0 - 0.2 /CUMM) 0 06/16 06/15 0836 0840 Chemistry Sodium (137 - 145 mmol/L) 137 138 Potassium (3.5 - 5.1 mmol/L) 4.2 3.9 Chloride (98 - 107 mmol/L) 100 97 L Carbon Dioxide (22 - 30 mmol/L) 24 23 Anion Gap (5 - 16) 13 18 H BUN (7 - 17 mg/dL) 10 9 Creatinine (0.5 - 1.0 mg/dL) 0.5 0.5 Estimated GFR (>60 ml/min) > 60 > 60 BUN/Creatinine Ratio (7 - 25 %) 20.0 18.0 Total Bilirubin (0.2 - 1.3 mg/dL) 0.5 0.6 Direct Bilirubin (< 0.4 mg/dL) 0.5 H 0.5 H AST (14 - 36 U/L) 11 L 13 L ALT (9 - 52 U/L) 19 21 Alkaline Phosphatase (<127 U/L) 102 115 Total Protein (6.3 - 8.2 g/dL) 6.1 L 6.4 Albumin (3.5 - 5.0 g/dL) 2.7 L 2.8 L Hematology CBC w Diff NO MAN DIFF REQ MAN DIFF ORDERED WBC (4.8 - 10.8 /CUMM) 13.1 H 21.2 H RBC (4.20 - 5.40 /CUMM) 3.97 L 4.07 L Hgb (12.0 - 16.0 G/DL) 11.5 L 11.8 L Hct (37 - 47 %) 34.3 L 35.6 L MCV (81.0 - 99.0 FL) 86.5 87.4 MCH (27.0 - 31.0 PG) 28.9 29.0 MCHC (33.0 - 37.0 G/DL) 33.5 33.2 RDW (11.5 - 14.5 %) 15.4 H 14.8 H Plt Count (130 - 400 /CUMM) 652 H 647 H MPV (7.4 - 10.4 FL) 7.1 L 7.2 L Gran % (42.2 - 75.2 %) 94.1 H 91.0 H Lymphocytes % (20.5 - 51.1 %) 4.1 L 3.3 L Monocytes % (1.7 - 9.3 %) 1.8 5.3 Eosinophils % (0 - 5 %) 0 0.3 Basophils % (0.0 - 2.0 %) 0 0.1 Absolute Granulocytes (1.4 - 6.5 /CUMM) 12.4 H 19.3 H Segmented Neutrophils (42.2 - 75.2 %) 84 H Band Neutrophils (0.0 - 5.0 %) 5 Absolute Lymphocytes (1.2 - 3.4 /CUMM) 0.5 L 0.7 L Lymphocytes (20.5 - 51.1 %) 6 L Monocytes (1.7 - 9.3 %) 5 Absolute Monocytes (0.10 - 0.60 /CUMM) 0.2 1.1 H Absolute Eosinophils (0.0 - 0.7 /CUMM) 0 0.1 Absolute Basophils (0.0 - 0.2 /CUMM) 0 0 Platelet Estimate (ADEQUATE) INCREASED Normocytic RBCs VERIFIED Normochromic RBCs VERIFIED Polychromasia
--- NOTE | 2017-06-17 13:13 | PN- Att Addend ---
Attending Addendum Attending Brief Note Covering attending note Patient had some bowel movements overnight and this morning suddenly when the vital signs were obtained was found to be in rapid atrial fibrillation patient transferred to telemetry, cardiology not defined treatment just started to monitor on telemetry , check her electrolytes follow up EKG Patient does not seem to have any symptoms with a rapid heartbeat. Intake & Output 06/17 1600 06/17 0400 06/16 1600 06/16 0400 06/15 1600 06/15 0400 Intake Total 120 120 240 240 250 Output Total 201 300 Balance 120 -81 240 240 -50 Intake, IV 20 20 Intake, Oral 100 100 240 240 250 Number 1 2 2 2 1 Bowel Movements Output, Stool 1 Output, Urine 200 300 Current Medications Sig/Franklyn Start time Last Medication Dose Route Stop Time Status Admin Acetaminophen 650 MG Q6-PRN PRN 06/07 2100 AC 06/17 PO 1052 Enoxaparin Sodium 40 MG DAILY 06/08 09 AC 06/17 SC 0903 Heparin Sodium 25,000 UNIT Q24H 06/17 1215 AC (Porcine) IV Sodium Chloride 500 ML Levothyroxine Sodium 0.025 MG DAILY AC 06/08 0700 AC 06/17 PO 0607 Mesalamine 4 GM AT BEDTIME 06/09 2100 AC 06/16 PA 2134 Mesalamine 1,000 MG 4 TIMES/DAY 06/08 0900 AC 06/17 PO 0902 Methylprednisolone 40 MG Q12 06/15 2100 AC 06/17 IV 0901 Metoprolol Tartrate 5 MG ONCE ONE 06/17 1315 UNVr IV 06/17 1316 Metoprolol Tartrate 25 MG ONCE ONE 06/17 1215 DC PO 06/17 1216 Nystatin 5 ML 4 TIMES/DAY 06/15 1433 AC 06/17 PO 0902 Ondansetron HCl 4 MG Q8P PRN 06/07 1915 AC 06/15 IV 1409 Potassium Chloride 40 MEQ DAILY 06/09 1630 AC 06/17 PO 0903 Vancomycin HCl 125 MG Q6 06/14 1816 AC 06/17 PO 1149 Laboratory Tests 06/17/17 0909: Troponin I Cancelled 06/17/17 0755: Anion Gap 15, Estimated GFR > 60, BUN/Creatinine Ratio 36.0 H, Troponin I < 0.01, CBC w Diff MAN DIFF ORDERED, RBC 4.05 L, MCV 86.5, MCH 28.7, MCHC 33.2, RDW 15.1 H, MPV 7.3 L, Gran % 91.3 H, Lymphocytes % 6.7 L, Monocytes % 2.0, Eosinophils % 0, Basophils % 0, Absolute Granulocytes 11.6 H, Segmented Neutrophils 83 H, Band Neutrophils 6 H, Absolute Lymphocytes 0.8 L, Lymphocytes 9 L, Monocytes 2, Absolute Monocytes 0.3, Absolute Eosinophils 0, Absolute Basophils 0, Platelet Estimate INCREASED, Anisocytosis 1+ 06/16/17 0836: Anion Gap 13, Estimated GFR > 60, BUN/Creatinine Ratio 20.0, Total Bilirubin 0.5 , Direct Bilirubin 0.5 H, AST 11 L, ALT 19, Alkaline Phosphatase 102, Total Protein 6.1 L, Albumin 2.7 L, CBC w Diff NO MAN DIFF REQ, RBC 3.97 L, MCV 86.5, MCH 28.9, MCHC 33.5, RDW 15.4 H, MPV 7.1 L, Gran % 94.1 H, Lymphocytes % 4.1 L, Monocytes % 1.8, Eosinophils % 0, Basophils % 0, Absolute Granulocytes 12.4 H, Absolute Lymphocytes 0.5 L, Absolute Monocytes 0.2, Absolute Eosinophils 0, Absolute Basophils 0 06/15/17 0840: Anion Gap 18 H, Estimated GFR > 60, BUN/Creatinine Ratio 18.0, Total Bilirubin 0.6, Direct Bilirubin 0.5 H, AST 13 L, ALT 21, Alkaline Phosphatase 115, Total Protein 6.4, Albumin 2.8 L, CBC w Diff MAN DIFF ORDERED, RBC 4.07 L, MCV 87.4, MCH 29.0, MCHC 33.2, RDW 14.8 H, MPV 7.2 L, Gran % 91.0 H, Lymphocytes % 3.3 L, Monocytes % 5.3, Eosinophils % 0.3, Basophils % 0.1, Absolute Granulocytes 19.3 H, Segmented Neutrophils 84 H, Band Neutrophils 5, Absolute Lymphocytes 0.7 L, Lymphocytes 6 L, Monocytes 5, Absolute Monocytes 1.1 H, Absolute Eosinophils 0.1, Absolute Basophils 0, Platelet Estimate INCREASED, Normocytic RBCs VERIFIED, Normochromic RBCs VERIFIED, Polychromasia Vital Signs Date Time Temp Pulse Resp B/P B/P Pulse O2 O2 Flow FiO2 Mean Ox Delivery Rate 06/17 0655 97.9 98 16 104/70 96 Room Air 06/16 2258 97.6 100 20 100/62 96 Room Air 06/16 1436 97.8 110 20 118/68 96
[2017-06-17 14:56] VITALS: BP 84/40
[2017-06-17 14:57] VITALS: BP 124/88
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
--- NOTE | 2017-06-17 16:52 | Event Note ---
Event Note Event Note: S:Found to be in afib around 10AM. B: Pt admitted for c.diff colitis and hx of UC A/R: Talked to Dr. Wagoner who thought the EKG was consistent with afib. Started on heparin drip and ordered metoprolol 25mg x1 as BP was borderline. Patient was transfered to [facility] in early afternoon.
[2017-06-17 17:04] VITALS: BP 110/90
[2017-06-17 19:45] LABS: C.DIFFICILE TOXIN B QL PCR DETECTED (NOT DETECTED)
--- NOTE | 2017-06-17 21:30 | Event Note ---
Event Note Event Note: Situation: Patient refusing to take all medications (including IV heparin). Brief: I was called by nursing staff that patient was refusing all of her medications and wanted to sign out AMA. On examination patient was AO x 1. Rest of PE was benign. She had converted to NSR from A.fib around 9 pm. However, an EKG could not be obtained. Patient's was at bedside. He was explained the patient was likely suffering from delirium which could be in the setting of high dose steroids. As the patient was not acutely agitated/physically aggravated there was no need to use any medications or use of restraints. Plan was to keep the patient overnight and reassess in am. In the meantime patient will be off Heparin as she gets aggravated when attempted to give her medications. A/P: * Reassess patient in am * Consider going down on steroids.
[2017-06-17 23:16] VITALS: BP 108/88
[2017-06-18 07:00] VITALS: BP 116/74
[2017-06-18 08:07] LABS: ABSOLUTE BASOPHIL COUNT 0 /CUMM (0.0-0.2); ABSOLUTE EOSINOPHIL COUNT 0 /CUMM (0.0-0.7); ABSOLUTE GRANULOCYTE CT 6.9 /CUMM (1.4-6.5); ABSOLUTE MONOCYTE COUNT 0.6 /CUMM (0.10-0.60); BASOPHIL % 0.2 % (0.0-2.0); EOSINOPHIL % 0.1 % (0-5); GRANULOCYTE % 80.5 % (42.2-75.2); MEAN CORPUSCULAR HGB 28.6 PG (27.0-31.0); MEAN CORPUSCULAR HGB CONC 32.9 G/DL (33.0-37.0); MEAN PLATELET VOLUME 7.1 FL (7.4-10.4); PLATELET COUNT 669 /CUMM (130-400); RBC DISTRIBUTION WIDTH 14.9 % (11.5-14.5); WHITE BLOOD CELL COUNT 8.6 /CUMM (4.8-10.8)
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
[2017-06-18 08:29] LABS: HEMATOCRIT 29.6 % (37-47)
[2017-06-18 08:30] LABS: PTT 21 SEC (25-37)
--- NOTE | 2017-06-18 11:24 | PN- Infect Dx ---
Subjective Subjective: Afebrile on steroids. She was apparently confused overnight but is improved today. She was transferred to telemetry because of the development of atrial fibrillation, which has reverted to normal sinus rhythm. She reports improvement in her diarrhea though continues to have loose stools, with 2 reported overnight. Objective Last 24 Hrs of Vital Signs/I&O Vital Signs Date Time Temp Pulse Resp B/P B/P Pulse O2 O2 Flow FiO2 Mean Ox Delivery Rate 06/18 0917 70 114/60 06/18 0700 97.7 72 18 116/74 98 Room Air 06/17 2316 97.5 122 18 108/88 96 Room Air 06/17 2153 83 06/17 1844 130 108/70 06/17 1710 143 110/90 06/17 1704 109 110/90 06/17 1600 Room Air 06/17 1457 97.6 114 16 124/88 92 Room Air 06/17 1357 160 124/88 Intake & Output 06/18 1600 06/18 0800 06/18 0000 Intake Total 900 550 Output Total 425 Balance 900 125 Intake, IV 800 300 Intake, Oral 100 250 Number 2 2 Bowel Movements Output, Urine 425 Physical Exam Other Physical Findings: She appears comfortable in no acute distress Lungs are clear Heart regular rhythm without murmur Abdomen is soft, nontender with positive bowel sounds Extremities no cyanosis, clubbing or edema Results Last 24 Hours of Lab Results: Laboratory Tests 06/18 06/18 06/18 0942 0829 0645 Chemistry Sodium (137 - 145 mmol/L) 142 Potassium (3.5 - 5.1 mmol/L) 4.4 Chloride (98 - 107 mmol/L) 105 Carbon Dioxide (22 - 30 mmol/L) 27 Anion Gap (5 - 16) 10 BUN (7 - 17 mg/dL) 19 H Creatinine (0.5 - 1.0 mg/dL) 0.5 Estimated GFR (>60 ml/min) > 60 BUN/Creatinine Ratio (7 - 25 %) 38.0 H Troponin I (< 0.11 ng/ml) < 0.01 Cancelled Coagulation APTT (25 - 37 SEC) 21 L Hematology CBC w Diff NO MAN DIFF REQ WBC (4.8 - 10.8 /CUMM) 8.6 RBC (4.20 - 5.40 /CUMM) 3.40 L Hgb (12.0 - 16.0 G/DL) 9.7 L Hct (37 - 47 %) 29.6 L MCV (81.0 - 99.0 FL) 87.0 MCH (27.0 - 31.0 PG) 28.6 MCHC (33.0 - 37.0 G/DL) 32.9 L RDW (11.5 - 14.5 %) 14.9 H Plt Count (130 - 400 /CUMM) 669 H MPV (7.4 - 10.4 FL) 7.1 L Gran % (42.2 - 75.2 %) 80.5 H Lymphocytes % (20.5 - 51.1 %) 12.1 L Monocytes % (1.7 - 9.3 %) 7.1 Eosinophils % (0 - 5 %) 0.1 Basophils % (0.0 - 2.0 %) 0.2 Absolute Granulocytes (1.4 - 6.5 /CUMM) 6.9 H Absolute Lymphocytes (1.2 - 3.4 /CUMM) 1.0 L Absolute Monocytes (0.10 - 0.60 /CUMM) 0.6 Absolute Eosinophils (0.0 - 0.7 /CUMM) 0 Absolute Basophils (0.0 - 0.2 /CUMM) 0 Serology Hep Bs Antigen (NONREACTIVE) NONREACTIVE 06/170 2029 1625 Chemistry Troponin I (< 0.11 ng/ml) Cancelled < 0.01 Coagulation APTT Cancelled Last 24 Hours of Thomas Results: No recent cultures Assessment/Plan ID Impression: Continues to improve, with temperatures remaining normal and with her white blood cell count also now normal, now on steroids, begun 3 days ago for a presumed flareup of her ulcerative colitis, based on the findings on the recent sigmoidoscopy. She remains on po Vancomycin, now Day 9 of treatment for C. difficile colitis, initially treated with Fidaxomicin and Flagyl. She is now on heparin for her atrial fibrillation. Suggestion: 1. Further management of her paroxysmal atrial fibrillation per Cardiology 2. Further management of her ulcerative colitis per GI 3. Follow-up biopsies (if done) from her recent sigmoidoscopy 4. Continue p.o. Vancomycin
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
--- NOTE | 2017-06-18 14:02 | PN- Gastroenterology ---
Assessment/Plan GI Assessment/Recommendations: Assessment: Ms. Robertson is a 71 year old female with newly diagnosed UC about a month ago admitted with a flare and superimposed C. difficile colitis who has had symptomatic improvement since being started on IV Solu-Medrol, albeit she continues to have some diarrhea. Overall she notes the frequency of the diarrhea has decreased and she is without any abdominal pain and is also encouraging that her white blood cell count has also returned to normal since being on the IV steroids. Furthermore, since she has been started on IV heparin he has not had any rectal bleeding with diarrhea which I would've expected based on the appearance of the inflammation on her flexible sigmoidoscopy before the weekend so I'm hopeful that the steroids are in fact working and she will start to have more formed stool soon. Recommendations: 1. Continue IV Solu-Medrol through today and potentially tomorrow based on her clinical symptoms. 2. Continue vancomycin to complete a 14 day course or as per ID recommendations. 3. Continue by mouth and ME mesalamine at current doses for now. 4. There are no absolute GI contraindication to resuming anticoagulation if medically indicated for atrial fibrillation, however would monitor closely for rectal bleeding. 5. Diet as tolerated. 6. Follow CBCs and lites and replete as needed. I will continue to follow this patient and make further recommendations based on her clinical course and results of repeat blood work. Problem List: 1. C. difficile colitis 2. New onset a-fib 3. Colitis 4. Ulcerative colitis Subjective Subjective: pt was transferred to telemetry yesterday for rapid afib and was started on IV heparin and she was also given IV and PO metoprolol for rate control. She has not had any rectal bleeding since starting the heparin drip. She has continued to have diarrhea which she notes is improvind, but she denies any solid comonent to her stool. she is without any abdominal pain or vomiting. Objective Vital Signs and I&Os Vital Signs Date Time Temp Pulse Resp B/P B/P Pulse O2 O2 Flow FiO2 Mean Ox Delivery Rate 06/18 0917 70 114/60 06/18 0700 97.7 72 18 116/74 98 Room Air 06/17 2316 97.5 122 18 108/88 96 Room Air 06/17 2153 83 06/17 1844 130 108/70 06/17 1710 143 110/90 06/17 1704 109 110/90 06/17 1600 Room Air 06/17 1457 97.6 114 16 124/88 92 Room Air 06/17 1357 160 124/88 Intake & Output 06/18 1600 06/18 0400 06/17 1600 06/17 0400 06/16 1600 06/16 0400 Intake Total 900 550 520 120 240 240 Output Total 425 1 201 Balance 900 125 519 -81 240 240 Intake, IV 800 300 20 20 Intake, Oral 100 250 500 100 240 240 Number 2 2 1 2 2 Bowel Movements Output, 1 Emesis Output, Stool 1 Output, Urine 425 200 Physical Exam General Appearance: well developed/nourished, no apparent distress, comfortable Head: atraumatic, normal appearance Neck: normal inspection, supple, full range of motion Respiratory: normal breath sounds Cardiovascular: irregularly irregular Rectal: deferred Extremities: no edema Current Medications: Current Medications Sig/Franklyn Start time Last Medication Dose Route Stop Time Status Admin Acetaminophen 1,000 MG ONCE ONE 06/17 1930 DC N/A 1 UNIT IV 06/17 194 Acetaminophen 650 MG .STK-MED ONE 06/17 1657 DC PO 06/17 1658 Acetaminophen 650 MG Q6-PRN PRN 06/07 2100 AC 06/17 PO 1705 Enoxaparin Sodium 40 MG DAILY 06/08 0900 AC 06/18 SC 0917 Heparin Sodium 25,000 UNIT Q24H 06/17 1215 AC 06/18 (Porcine) IV 1155 Sodium Chloride 500 ML Levothyroxine Sodium 0.025 MG DAILY AC 06/08 0700 AC 06/18 PO 0557 Lidocaine 1 PAT DAILY 06/17 1925 AC 06/18 EXT 0917 Melatonin 5 MG ONCE PRN 06/17 2330 DC PO 06/17 2359 Mesalamine 4 GM AT BEDTIME 06/09 2100 AC 06/16 ME 2134 Mesalamine 1,000 MG 4 TIMES/DAY 06/08 0900 AC 06/18 PO 1156 Methylprednisolone 40 MG Q12 06/15 2100 AC 06/18 IV 0916 Metoprolol Tartrate 50 MG BID 06/17 2100 DC PO Metoprolol Tartrate 50 MG BID 06/17 1830 AC 06/18 PO 0917 Metoprolol Tartrate 5 MG ONCE ONE 06/17 1815 DC IV 06/17 1816 Metoprolol Tartrate 5 MG ONCE ONE 06/17 1600 DC 06/17 IV 06/17 1601 1710 Nystatin 5 ML 4 TIMES/DAY 06/15 1433 AC 06/18 PO 1156 Ondansetron HCl 4 MG Q8P PRN 06/07 1914 AC 06/17 IV 1356 Potassium Chloride 40 MEQ DAILY 06/09 1630 AC 06/18 PO 0917 Sodium Chloride 1,000 ML Q10H 06/17 1814 AC 06/18 IV 0558 Vancomycin HCl 125 MG Q6 06/15 1815 AC 06/18 PO 1155 Results Pertinent Lab Results: Laboratory Tests 06/18 06/18 06/18 0942 0829 0645 Chemistry Sodium (137 - 145 mmol/L) 142 Potassium (3.5 - 5.1 mmol/L) 4.4 Chloride (98 - 107 mmol/L) 105 Carbon Dioxide (22 - 30 mmol/L) 27 Anion Gap (5 - 16) 10 BUN (7 - 17 mg/dL) 19 H Creatinine (0.5 - 1.0 mg/dL) 0.5 Estimated GFR (>60 ml/min) > 60 BUN/Creatinine Ratio (7 - 25 %) 38.0 H Troponin I (< 0.11 ng/ml) < 0.01 Cancelled Coagulation APTT (25 - 37 SEC) 21 L Hematology CBC w Diff NO MAN DIFF REQ WBC (4.8 - 10.8 /CUMM) 8.6 RBC (4.20 - 5.40 /CUMM) 3.40 L Hgb (12.0 - 16.0 G/DL) 9.7 L Hct (37 - 47 %) 29.6 L MCV (81.0 - 99.0 FL) 87.0 MCH (27.0 - 31.0 PG) 28.6 MCHC (33.0 - 37.0 G/DL) 32.9 L RDW (11.5 - 14.5 %) 14.9 H Plt Count (130 - 400 /CUMM) 669 H MPV (7.4 - 10.4 FL) 7.1 L Gran % (42.2 - 75.2 %) 80.5 H Lymphocytes % (20.5 - 51.1 %) 12.1 L Monocytes % (1.7 - 9.3 %) 7.1 Eosinophils % (0 - 5 %) 0.1 Basophils % (0.0 - 2.0 %) 0.2 Absolute Granulocytes (1.4 - 6.5 /CUMM) 6.9 H Absolute Lymphocytes (1.2 - 3.4 /CUMM) 1.0 L Absolute Monocytes (0.10 - 0.60 /CUMM) 0.6 Absolute Eosinophils (0.0 - 0.7 /CUMM) 0 Absolute Basophils (0.0 - 0.2 /CUMM) 0 Serology Hep Bs Antigen (NONREACTIVE) NONREACTIVE 06/17 06/17 06/17 06/17 3940 2013 3002 0922 Chemistry Troponin I (< 0.11 ng/ml) Cancelled < 0.01 Cancelled Coagulation APTT Cancelled 06/17 06/16 4027 7170 Chemistry Sodium (137 - 145 mmol/L) 139 137 Potassium (3.5 - 5.1 mmol/L) 5.1 4.2 Chloride (98 - 107 mmol/L) 99 100 Carbon Dioxide (22 - 30 mmol/L) 25 24 Anion Gap (5 - 16) 15 13 BUN (7 - 17 mg/dL) 18 H 10 Creatinine (0.5 - 1.0 mg/dL) 0.5 0.5 Estimated GFR (>60 ml/min) > 60 > 60 BUN/Creatinine Ratio (7 - 25 %) 36.0 H 20.0 Magnesium (1.6 - 2.3 mg/dL) 2.0 Total Bilirubin (0.2 - 1.3 mg/dL) 0.5 Direct Bilirubin (< 0.4 mg/dL) 0.5 H AST (14 - 36 U/L) 11 L ALT (9 - 52 U/L) 19 Alkaline Phosphatase (<127 U/L) 102 Troponin I (< 0.11 ng/ml) < 0.01 Total Protein (6.3 - 8.2 g/dL) 6.1 L Albumin (3.5 - 5.0 g/dL) 2.7 L Hematology CBC w Diff MAN DIFF ORDERED NO MAN DIFF REQ WBC (4.8 - 10.8 /CUMM) 12.7 H 13.1 H RBC (4.20 - 5.40 /CUMM) 4.05 L 3.97 L Hgb (12.0 - 16.0 G/DL) 11.6 L 11.5 L Hct (37 - 47 %) 35.0 L 34.3 L MCV (81.0 - 99.0 FL) 86.5 86.5 MCH (27.0 - 31.0 PG) 28.7 28.9 MCHC (33.0 - 37.0 G/DL) 33.2 33.5 RDW (11.5 - 14.5 %) 15.1 H 15.4 H Plt Count (130 - 400 /CUMM) 781 H 652 H MPV (7.4 - 10.4 FL) 7.3 L 7.1 L Gran % (42.2 - 75.2 %) 91.3 H 94.1 H Lymphocytes % (20.5 - 51.1 %) 6.7 L 4.1 L Monocytes % (1.7 - 9.3 %) 2.0 1.8 Eosinophils % (0 - 5 %) 0 0 Basophils % (0.0 - 2.0 %) 0 0 Absolute Granulocytes (1.4 - 6.5 /CUMM) 11.6 H 12.4 H Segmented Neutrophils (42.2 - 75.2 %) 83 H Band Neutrophils (0.0 - 5.0 %) 6 H Absolute Lymphocytes (1.2 - 3.4 /CUMM) 0.8 L 0.5 L Lymphocytes (20.5 - 51.1 %) 9 L Monocytes (1.7 - 9.3 %) 2 Absolute Monocytes (0.10 - 0.60 /CUMM) 0.3 0.2 Absolute Eosinophils (0.0 - 0.7 /CUMM) 0 0 Absolute Basophils (0.0 - 0.2 /CUMM) 0 0 Platelet Estimate (ADEQUATE) INCREASED Anisocytosis 1+
[2017-06-18 14:36] VITALS: BP 100/70
[2017-06-18 17:24] LABS: PTT 83 SEC (25-37)
--- NOTE | 2017-06-18 20:16 | PN- Cardiology ---
Subjective Subjective: * Patient feels much improved. * Spontaneous conversion to sinus rhythm * increased free T4 Objective Vital Signs and I&Os Vital Signs Date Time Temp Pulse Resp B/P B/P Pulse O2 O2 Flow FiO2 Mean Ox Delivery Rate 06/18 1436 97.8 63 20 100/70 95 Room Air 06/18 0917 70 114/60 06/18 0700 97.7 72 18 116/74 98 Room Air 06/17 2316 97.5 122 18 108/88 96 Room Air 06/17 2153 83 Intake & Output 06/18 1600 06/18 0800 06/18 0000 06/17 1600 06/17 0800 06/17 0000 Intake Total 1300 900 550 400 120 120 Output Total 400 425 1 201 Balance 900 900 125 399 120 -81 Intake, IV 800 800 300 20 20 Intake, Oral 500 100 250 400 100 100 Number 2 2 2 1 Bowel Movements Output, 1 Emesis Output, Stool 1 Output, Urine 400 425 200 Physical Exam: General: WD/WN female in NAD; alert and oriented x 3 HEENT: NC/AT, PERRL, EOMI Neck: no JVD, no carotid bruit Heart: RRR w/o murmur Lungs: clear bilaterally Abdomen: soft, midline scar, firm mass in midline, +ve bowel sounds Extremities: no edema Assessment/Plan Assessment/Plan * This patient had atrial fibrillation with rapid rate of unknown duration which spontaneously converted to a sinus rhythm. This dysrhythmia occured in the setting of hyperthyroidism. Continue Metoprolol 50mg BID. Would begin Eliquis for paroxysmal atrial fibrillation at 2.5mg BID. * Obtain an echocardiogram. Continue telemetry? Yes
[2017-06-18 22:26] VITALS: BP 98/60
--- NOTE | 2017-06-19 07:19 | PN- Student ---
Subjective Subjective: Pt is feeling well this morning. Her was visiting. She had a loose, bloody BM this morning, but the nurse states her diarrhea is less watery than before. pt does not remember having diarrhea in the middle of the night, but remembers urinating. pt denies chest pain, palpitations, abdominal pain, headaches. Per telemetry, pt had sinus bradycardia to sinus rhythm with HR 55-65 throughout the night, with no overnight events. Objective Objective: Physical Exam General appearance: well-appearing female in no acute distress CV: normal S1, S2. no murmurs, rubs or gallops Respiratory: lungs clear to ascultation bilaterally GI: no TTP in 4 quadrants Laboratory Tests 06/20 06/19 0615 2125 Chemistry Sodium (137 - 145 mmol/L) 138 Potassium (3.5 - 5.1 mmol/L) 4.7 Chloride (98 - 107 mmol/L) 99 Carbon Dioxide (22 - 30 mmol/L) 29 Anion Gap (5 - 16) 10 BUN (7 - 17 mg/dL) 15 Creatinine (0.5 - 1.0 mg/dL) 0.5 Estimated GFR (>60 ml/min) > 60 BUN/Creatinine Ratio (7 - 25 %) 30.0 H Triglycerides (<150 mg/dL) 164 H Cholesterol (<200 MG/DL) 139 LDL Cholesterol, Calc (65 - 129 mg/dL) 72 HDL Cholesterol (40 - 60 mg/dL) 35 L Cholesterol/HDL Ratio (0.00 - 4.23 %) 4.0 Hematology CBC w Diff NO MAN DIFF REQ NO MAN DIFF REQ WBC (4.8 - 10.8 /CUMM) 5.6 8.9 RBC (4.20 - 5.40 /CUMM) 3.37 L 3.39 L Hgb (12.0 - 16.0 G/DL) 9.9 L 9.6 L Hct (37 - 47 %) 29.4 L 29.8 L MCV (81.0 - 99.0 FL) 87.3 87.7 MCH (27.0 - 31.0 PG) 29.3 28.4 MCHC (33.0 - 37.0 G/DL) 33.6 32.4 L RDW (11.5 - 14.5 %) 14.6 H 14.9 H Plt Count (130 - 400 /CUMM) 659 H 684 H MPV (7.4 - 10.4 FL) 7.2 L 7.0 L Gran % (42.2 - 75.2 %) 84.6 H 83.1 H Lymphocytes % (20.5 - 51.1 %) 10.4 L 9.3 L Monocytes % (1.7 - 9.3 %) 4.8 7.5 Eosinophils % (0 - 5 %) 0 0 Basophils % (0.0 - 2.0 %) 0.2 0.1 Absolute Granulocytes (1.4 - 6.5 /CUMM) 4.8 7.4 H Absolute Lymphocytes (1.2 - 3.4 /CUMM) 0.6 L 0.8 L Absolute Monocytes (0.10 - 0.60 /CUMM) 0.3 0.7 H Absolute Eosinophils (0.0 - 0.7 /CUMM) 0 0 Absolute Basophils (0.0 - 0.2 /CUMM) 0 0 Serology Hep Bs Antigen (NONREACTIVE) NONREACTIVE Hep Bs Antibody (NONREACTIVE) NONREACTIVE TB Test (QFT) Mitogen Pending TB Test Mitogen - Nil Pending TB Test Antigen - Nil Pending TB Test (QFT) Interp Pending Vital Signs Date Time Temp Pulse Resp B/P B/P Pulse O2 O2 Flow FiO2 Mean Ox Delivery Rate 06/20 1227 64 108/60 06/20 1049 88/56 06/20 0638 97.9 65 18 110/72 96 Room Air 06/19 2200 97.5 66 18 100/52 97 06/19 2122 72 100/52 06/19 1513 97.6 60 20 90/60 96 Intake & Output 06/20 1600 06/20 0800 06/20 0000 Intake Total 120 375 Output Total 400 400 Balance -280 -25 Intake, Oral 120 375 Number 2 2 Bowel Movements Output, Urine 400 400 Current Medications Sig/Franklyn Start time Last Medication Dose Route Stop Time Status Admin Acetaminophen 650 MG Q6-PRN PRN 06/07 2099 AC 06/17 PO 1705 Apixaban 2.5 MG BID 06/19 0900 AC 06/20 PO 1035 Levothyroxine Sodium 0.025 MG DAILY AC 06/08 0700 AC 06/20 PO 0552 Lidocaine 1 PAT DAILY 06/17 192 AC 06/19 EXT 0855 Mesalamine 4 GM AT BEDTIME 06/09 2099 AC 06/19 [place] 2118 Mesalamine 1,000 MG 4 TIMES/DAY 06/08 0900 AC 06/20 PO 1034 Methylprednisolone 40 MG Q12 06/15 2100 DC 06/19 IV 06/19 Metoprolol Tartrate 50 MG BID 06/17 183 AC 06/20 PO 1227 Nystatin 5 ML 4 TIMES/DAY 06/15 143 AC 06/20 PO 1034 Ondansetron HCl 4 MG Q8P PRN 06/07 191 AC 06/17 IV 1356 Potassium Chloride 40 MEQ DAILY 06/09 163 AC 06/20 PO 1034 Vancomycin HCl 125 MG Q6 06/14 181 AC 06/20 PO 06/24 0100 1220 Results Results: Laboratory Tests 06/18/17 1555: APTT 83 H 06/18/17 0942: Troponin I < 0.01 06/18/17 0829: Troponin I Cancelled 06/18/17 0645: Anion Gap 10, Estimated GFR > 60, BUN/Creatinine Ratio 38.0 H, APTT 21 L, CBC w Diff NO MAN DIFF REQ, RBC 3.40 L, MCV 87.0, MCH 28.6, MCHC 32.9 L, RDW 14.9 H, MPV 7.1 L, Gran % 80.5 H, Lymphocytes % 12.1 L, Monocytes % 7.1, Eosinophils % 0.1, Basophils % 0.2, Absolute Granulocytes 6.9 H, Absolute Lymphocytes 1.0 L, Absolute Monocytes 0.6, Absolute Eosinophils 0, Absolute Basophils 0, Hep Bs Antigen NONREACTIVE 06/17/172199: Troponin I Cancelled 06/17/17 2030: APTT Cancelled 06/17/17 1625: Troponin I < 0.01 06/17/17 0909: Troponin I Cancelled 06/17/17 0755: Anion Gap 15, Estimated GFR > 60, BUN/Creatinine Ratio 36.0 H, Magnesium 2.0, Troponin I < 0.01, CBC w Diff MAN DIFF ORDERED, RBC 4.05 L, MCV 86.5, MCH 28.7, MCHC 33.2, RDW 15.1 H, MPV 7.3 L, Gran % 91.3 H, Lymphocytes % 6.7 L, Monocytes % 2.0, Eosinophils % 0, Basophils % 0, Absolute Granulocytes 11.6 H, Segmented Neutrophils 83 H, Band Neutrophils 6 H, Absolute Lymphocytes 0.8 L, Lymphocytes 9 L, Monocytes 2, Absolute Monocytes 0.3, Absolute Eosinophils 0, Absolute Basophils 0, Platelet Estimate INCREASED, Anisocytosis 1+ / 0836: Anion Gap 13, Estimated GFR > 60, BUN/Creatinine Ratio 20.0, Total Bilirubin 0.5 , Direct Bilirubin 0.5 H, AST 11 L, ALT 19, Alkaline Phosphatase 102, Total Protein 6.1 L, Albumin 2.7 L, CBC w Diff NO MAN DIFF REQ, RBC 3.97 L, MCV 86.5, MCH 28.9, MCHC 33.5, RDW 15.4 H, MPV 7.1 L, Gran % 94.1 H, Lymphocytes % 4.1 L, Monocytes % 1.8, Eosinophils % 0, Basophils % 0, Absolute Granulocytes 12.4 H, Absolute Lymphocytes 0.5 L, Absolute Monocytes 0.2, Absolute Eosinophils 0, Absolute Basophils 0 Assessment/Plan Assessment: 71 year old female patient with history of Trip's thyroiditis and a recent diagnosis of ulcerative colitis presenting with persistent diarrhea since December. Pt tested positive for C.diff and is taking vancomycin for treatment despite her allergy. She is recovering, and has fewer loose stools that are bloody but less watery. she was diagnosed with a.fib on admission and given metoprolol and heparin. the heparin has been discontinued and she was started on eliquis 2.5mg BID PO on 06/19 once her H&H stabilized. Plan: 1. Ulcerative colitis not responding to steroids -start infliximab -Hep B negative serology -TB results pending 2. C.diff -continue vancomycin 125 mg Q6 PO until 06/24 3. normocytic anemia from blood loss -monitor stools for blood 4. new onset A.fib -stop heparin and begin eliquis 2.5 mg BID PO 5. trip's thyroititis -continue synthroid
[2017-06-19 07:23] VITALS: BP 110/64
[2017-06-19 08:00] LABS: ABSOLUTE BASOPHIL COUNT 0 /CUMM (0.0-0.2); ABSOLUTE EOSINOPHIL COUNT 0 /CUMM (0.0-0.7); ABSOLUTE GRANULOCYTE CT 3.7 /CUMM (1.4-6.5); ABSOLUTE LYMPH COUNT 0.6 /CUMM (1.2-3.4); ABSOLUTE MONOCYTE COUNT 0.3 /CUMM (0.10-0.60); BASOPHIL % 0.3 % (0.0-2.0); EOSINOPHIL % 0 % (0-5); GRANULOCYTE % 80.3 % (42.2-75.2); HEMATOCRIT 27.8 % (37-47); MEAN CORPUSCULAR HGB 29.5 PG (27.0-31.0); MEAN CORPUSCULAR HGB CONC 33.9 G/DL (33.0-37.0); MEAN CORPUSCULAR VOLUME 87.2 FL (81.0-99.0); PLATELET COUNT 599 /CUMM (130-400); RBC DISTRIBUTION WIDTH 14.9 % (11.5-14.5); RED BLOOD CELL CT 3.19 /CUMM (4.20-5.40); WHITE BLOOD CELL COUNT 4.6 /CUMM (4.8-10.8)
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
[2017-06-19 08:57] LABS: PTT 82 SEC (25-37)
--- NOTE | 2017-06-19 14:21 | PN- Gastroenterology ---
Assessment/Plan GI Assessment/Recommendations: Assessment: Ms. Robertson is a 71 year old female admitted with a flare of UC with superimposed c. diff who has now been on IV steroids (day 4) and max dose 5-ASA medications, but she continues to have diarrhea without any significant solid stool formation. While she has had some symptomatic benefit with the steroids and it was encouraging that her WBC has improved since they've been started she continues to have profuse watery diarrhea so it appears as though she will fail steroids and alternative treatments may ultimately be necessary to induce remission. I suspect the rectal bleeding is from the colitis and exacerbated by the anticoagulation and as her hgb is currently stable i don't feel that needs to be stopped, but close monitoring of her hgb will be necessary while she is on it. Finally, if she fails to respond to all medical interventions she may ultimatley require a colectomy with pouch formation, but we are not there just yet. Recommendations: 1. Continue IV solumederol 40mg bid for now 2. Continue 5-ASA regimen at current doses 3. Low residue diet as tolerated 4. PO vanco to complete a 14 day course 5. Use questran as needed, but make sure it is given separate from the vanco and mesalamine 6. If she remains without any solid stool formation in the next 24-48hours consideration will then be given to use remicade or cyclosporine. 7. Check an interferon gamma assay and hep BSab/ag and would also check a cholesterol level in anticipation of either using remicade (preferrable) vs cyclosporine. 8. Would check with pharmacy to see if remicade is something we can give as an inpatient. 9. Follow daily CBC and transfuse as needed to maintain hgb > 8 10. Consideration may ultimately be given for a CRS consult for medcally refractory UC. I will continue to follow this patient and make further recommendations based on her clinical course and results of repeat blood work Problem List: 1. C. difficile colitis 2. Diarrhea 3. Ulcerative colitis Subjective Subjective: pt still with loose stool and per nursing they have started to note a scant amount of blood in the diarrhea. She had 3 loose stools overnignt and as of the time of this note she had another 2-3 so far today also with some blood. she is without any abdominal pain and is tolerating a diet. Her heparin has been changed to eliquis. Objective Vital Signs and I&Os Vital Signs Date Time Temp Pulse Resp B/P B/P Pulse O2 O2 Flow FiO2 Mean Ox Delivery Rate 06/19 0920 20 95 Room Air 06/19 0855 64 112/60 06/19 0723 97.6 73 20 110/64 85 Room Air 06/18 2226 97.6 77 16 98/60 96 Room Air 06/18 2108 74 112/84 06/18 1436 97.8 63 20 100/70 95 Room Air Intake & Output 06/19 1600 06/19 0400 06/18 1600 06/18 0400 06/17 1600 06/17 0400 Intake Total 160 662.4 2200 550 520 120 Output Total 900 900 400 425 1 201 Balance -740 -237.6 1800 125 519 -81 Intake, IV 160 162.4 1600 300 20 20 Intake, Oral 500 600 250 500 100 Number 3 2 4 2 1 Bowel Movements Output, 1 Emesis Output, Stool 1 Output, Urine 900 900 400 425 200 Physical Exam General Appearance: no apparent distress, comfortable, thin Head: atraumatic, normal appearance Neck: normal inspection, supple Respiratory: normal breath sounds, chest non-tender, no respiratory distress Cardiovascular: irregularly irregular Abdomen: normal bowel sounds, soft, non-tender, no organomegaly Rectal: deferred Extremities: no edema Current Medications: Current Medications Sig/Franklyn Start time Last Medication Dose Route Stop Time Status Admin Acetaminophen 650 MG Q6-PRN PRN 06/07 2099 AC 06/17 PO 1705 Apixaban 2.5 MG BID 06/19 09 AC 06/19 PO 1120 Enoxaparin Sodium 40 MG DAILY 06/08 09 DC 06/18 SC 0917 Heparin Sodium 25,000 UNIT Q24H 06/17 1215 DC 06/19 (Porcine) IV 0411 Sodium Chloride 500 ML Levothyroxine Sodium 0.025 MG DAILY AC 06/08 07 AC 06/19 PO 0621 Lidocaine 1 PAT DAILY 06/17 1925 AC 06/19 EXT 0855 Mesalamine 4 GM AT BEDTIME 06/09 2099 AC 06/18 TX 2104 Mesalamine 1,000 MG 4 TIMES/DAY 06/08 09 AC 06/19 PO 1252 Methylprednisolone 40 MG Q12 06/15 2099 AC 06/19 IV 06/19 2200 0855 Metoprolol Tartrate 50 MG BID 06/17 183 AC 06/19 PO 0855 Nystatin 5 ML 4 TIMES/DAY 06/15 1433 AC 06/19 PO 1252 Ondansetron HCl 4 MG Q8P PRN 06/07 1914 AC 06/17 IV 1356 Potassium Chloride 40 MEQ DAILY 06/09 163 AC 06/19 PO 0855 Sodium Chloride 1,000 ML Q10H 06/17 181 DC 06/18 IV 0558 Vancomycin HCl 125 MG Q6 06/15 1815 AC 06/19 PO 06/24 0100 1121 Results Pertinent Lab Results: Laboratory Tests 06/19 06/18 06/18 0743 1555 0942 Chemistry Sodium (137 - 145 mmol/L) 140 Potassium (3.5 - 5.1 mmol/L) 4.4 Chloride (98 - 107 mmol/L) 104 Carbon Dioxide (22 - 30 mmol/L) 27 Anion Gap (5 - 16) 9 BUN (7 - 17 mg/dL) 12 Creatinine (0.5 - 1.0 mg/dL) 0.5 Estimated GFR (>60 ml/min) > 60 BUN/Creatinine Ratio (7 - 25 %) 24.0 Troponin I (< 0.11 ng/ml) < 0.01 TSH (0.270 - 4.200 uIU/mL) 1.380 Free T4 (0.78 - 2.44 ng/dL) 1.55 Total T3 (0.97 - 1.69 ng/mL) 0.71 L Thyroxine Binding Indx (23.5 - 40.5 % UPTAKE) 52.3 H Coagulation APTT (25 - 37 SEC) 82 H 83 H Hematology CBC w Diff NO MAN DIFF REQ WBC (4.8 - 10.8 /CUMM) 4.6 L RBC (4.20 - 5.40 /CUMM) 3.19 L Hgb (12.0 - 16.0 G/DL) 9.4 L Hct (37 - 47 %) 27.8 L MCV (81.0 - 99.0 FL) 87.2 MCH (27.0 - 31.0 PG) 29.5 MCHC (33.0 - 37.0 G/DL) 33.9 RDW (11.5 - 14.5 %) 14.9 H Plt Count (130 - 400 /CUMM) 599 H MPV (7.4 - 10.4 FL) 7.0 L Gran % (42.2 - 75.2 %) 80.3 H Lymphocytes % (20.5 - 51.1 %) 13.1 L Monocytes % (1.7 - 9.3 %) 6.3 Eosinophils % (0 - 5 %) 0 Basophils % (0.0 - 2.0 %) 0.3 Absolute Granulocytes (1.4 - 6.5 /CUMM) 3.7 Absolute Lymphocytes (1.2 - 3.4 /CUMM) 0.6 L Absolute Monocytes (0.10 - 0.60 /CUMM) 0.3 Absolute Eosinophils (0.0 - 0.7 /CUMM) 0 Absolute Basophils (0.0 - 0.2 /CUMM) 0 06/18 06/18 06/17 0829 0645 2200 Chemistry Sodium (137 - 145 mmol/L) 142 Potassium (3.5 - 5.1 mmol/L) 4.4 Chloride (98 - 107 mmol/L) 105 Carbon Dioxide (22 - 30 mmol/L) 27 Anion Gap (5 - 16) 10 BUN (7 - 17 mg/dL) 19 H Creatinine (0.5 - 1.0 mg/dL) 0.5 Estimated GFR (>60 ml/min) > 60 BUN/Creatinine Ratio (7 - 25 %) 38.0 H Troponin I Cancelled Cancelled Coagulation APTT (25 - 37 SEC) 21 L Hematology CBC w Diff NO MAN DIFF REQ WBC (4.8 - 10.8 /CUMM) 8.6 RBC (4.20 - 5.40 /CUMM) 3.40 L Hgb (12.0 - 16.0 G/DL) 9.7 L Hct (37 - 47 %) 29.6 L MCV (81.0 - 99.0 FL) 87.0 MCH (27.0 - 31.0 PG) 28.6 MCHC (33.0 - 37.0 G/DL) 32.9 L RDW (11.5 - 14.5 %) 14.9 H Plt Count (130 - 400 /CUMM) 669 H MPV (7.4 - 10.4 FL) 7.1 L Gran % (42.2 - 75.2 %) 80.5 H Lymphocytes % (20.5 - 51.1 %) 12.1 L Monocytes % (1.7 - 9.3 %) 7.1 Eosinophils % (0 - 5 %) 0.1 Basophils % (0.0 - 2.0 %) 0.2 Absolute Granulocytes (1.4 - 6.5 /CUMM) 6.9 H Absolute Lymphocytes (1.2 - 3.4 /CUMM) 1.0 L Absolute Monocytes (0.10 - 0.60 /CUMM) 0.6 Absolute Eosinophils (0.0 - 0.7 /CUMM) 0 Absolute Basophils (0.0 - 0.2 /CUMM) 0 Serology Hep Bs Antigen (NONREACTIVE) NONREACTIVE 06/17 06/17 06/17 2030 7842 0918 Chemistry Troponin I (< 0.11 ng/ml) < 0.01 Cancelled Coagulation APTT Cancelled 06/17 6745 Chemistry Sodium (137 - 145 mmol/L) 139 Potassium (3.5 - 5.1 mmol/L) 5.1 Chloride (98 - 107 mmol/L) 99 Carbon Dioxide (22 - 30 mmol/L) 25 Anion Gap (5 - 16) 15 BUN (7 - 17 mg/dL) 18 H Creatinine (0.5 - 1.0 mg/dL) 0.5 Estimated GFR (>60 ml/min) > 60 BUN/Creatinine Ratio (7 - 25 %) 36.0 H Magnesium (1.6 - 2.3 mg/dL) 2.0 Troponin I (< 0.11 ng/ml) < 0.01 Hematology CBC w Diff MAN DIFF ORDERED WBC (4.8 - 10.8 /CUMM) 12.7 H RBC (4.20 - 5.40 /CUMM) 4.05 L Hgb (12.0 - 16.0 G/DL) 11.6 L Hct (37 - 47 %) 35.0 L MCV (81.0 - 99.0 FL) 86.5 MCH (27.0 - 31.0 PG) 28.7 MCHC (33.0 - 37.0 G/DL) 33.2 RDW (11.5 - 14.5 %) 15.1 H Plt Count (130 - 400 /CUMM) 781 H MPV (7.4 - 10.4 FL) 7.3 L Gran % (42.2 - 75.2 %) 91.3 H Lymphocytes % (20.5 - 51.1 %) 6.7 L Monocytes % (1.7 - 9.3 %) 2.0 Eosinophils % (0 - 5 %) 0 Basophils % (0.0 - 2.0 %) 0 Absolute Granulocytes (1.4 - 6.5 /CUMM) 11.6 H Segmented Neutrophils (42.2 - 75.2 %) 83 H Band Neutrophils (0.0 - 5.0 %) 6 H Absolute Lymphocytes (1.2 - 3.4 /CUMM) 0.8 L Lymphocytes (20.5 - 51.1 %) 9 L Monocytes (1.7 - 9.3 %) 2 Absolute Monocytes (0.10 - 0.60 /CUMM) 0.3 Absolute Eosinophils (0.0 - 0.7 /CUMM) 0 Absolute Basophils (0.0 - 0.2 /CUMM) 0 Platelet Estimate (ADEQUATE) INCREASED Anisocytosis 1+
[2017-06-19 15:13] VITALS: BP 90/60
--- NOTE | 2017-06-19 17:38 | PN- Cardiology ---
Subjective Subjective: * Patient is resting comfortably without complaints. * sinus rhythm * H/H continues to trend down Objective Vital Signs and I&Os Vital Signs Date Time Temp Pulse Resp B/P B/P Pulse O2 O2 Flow FiO2 Mean Ox Delivery Rate 06/19 1513 97.6 60 20 90/60 96 06/19 0920 20 95 Room Air 06/19 0855 64 112/60 06/19 0723 97.6 73 20 110/64 85 Room Air 06/18 2226 97.6 77 16 98/60 96 Room Air 06/18 2108 74 112/84 Intake & Output 06/19 1600 06/19 0800 06/19 0000 06/18 1600 06/18 0800 06/18 0000 Intake Total 550 160 662.4 1300 900 550 Output Total 600 900 900 400 425 Balance -50 -740 -237.6 900 900 125 Intake, IV 50 160 162.4 800 800 300 Intake, Oral 500 500 500 100 250 Number 3 3 2 2 2 2 Bowel Movements Output, Urine 600 900 900 400 425 Physical Exam: General: WD/WN female in NAD; alert and oriented x 3 HEENT: NC/AT, PERRL, EOMI Neck: no JVD, no carotid bruit Heart: RRR w/o murmur Lungs: clear bilaterally Abdomen: soft, midline scar, firm mass in midline, +ve bowel sounds Extremities: no edema Assessment/Plan Assessment/Plan * This patient had atrial fibrillation with rapid rate of unknown duration which spontaneously converted to a sinus rhythm. This dysrhythmia occured in the setting of hyperthyroidism. Continue Metoprolol 50mg BID. Would begin Eliquis for paroxysmal atrial fibrillation at 2.5mg BID. We will watch her H/H and if it continues to fall due to bleeding then Eliquis will need to be stopped and we will consider adding Sotolol insteat of Metoprolol to help maintain a sinus rhythm. * Please obtain an echocardiogram. Continue telemetry? Yes
[2017-06-19 21:53] LABS: ABSOLUTE BASOPHIL COUNT 0 /CUMM (0.0-0.2); ABSOLUTE EOSINOPHIL COUNT 0 /CUMM (0.0-0.7); ABSOLUTE GRANULOCYTE CT 7.4 /CUMM (1.4-6.5); ABSOLUTE LYMPH COUNT 0.8 /CUMM (1.2-3.4); ABSOLUTE MONOCYTE COUNT 0.7 /CUMM (0.10-0.60); BASOPHIL % 0.1 % (0.0-2.0); EOSINOPHIL % 0 % (0-5); GRANULOCYTE % 83.1 % (42.2-75.2); HEMATOCRIT 29.8 % (37-47); MEAN CORPUSCULAR HGB 28.4 PG (27.0-31.0); MEAN CORPUSCULAR HGB CONC 32.4 G/DL (33.0-37.0); MEAN CORPUSCULAR VOLUME 87.7 FL (81.0-99.0); PLATELET COUNT 684 /CUMM (130-400); RBC DISTRIBUTION WIDTH 14.9 % (11.5-14.5); RED BLOOD CELL CT 3.39 /CUMM (4.20-5.40)
[2017-06-19 21:55] LABS: WHITE BLOOD CELL COUNT 8.9 /CUMM (4.8-10.8)
[2017-06-19 22:00] VITALS: BP 100/52
[2017-06-20 06:38] VITALS: BP 110/72
--- NOTE | 2017-06-20 07:30 | ECHOCARDIOGRAM REPORT ---
ARLETH ROMANO Age: 71 : 1945 Gender: F Exam Date: 06/19/2017 17:06 Exam Location: [address] Ht (in): 60 Wt (lb): 124 BSA: 1.55 BP: 114 / 60 Ordering Physician: Debra Whitten MD Referring Physician: Mike Wagoner MD, PhD Technologist: Itzel Dixon [facility] Room Number: [id number] Indications: AFIB/FLUTTER Rhythm: Sinus Technical Quality: good FINDINGS Left Ventricle Normal left ventricular size, wall thickness and systolic function with no obvious regional wall motion abnormalities. Normal left ventricular diastolic filling pattern for age. The ejection fraction is visually estimated at 60%. Right Ventricle The right ventricle is normal in size and function. Right Atrium The right atrium is normal in size. Left Atrium The left atrium is normal in size. The interatrial septum is intact. Mitral Valve The mitral valve is normal in structure and function. There is mild mitral regurgitation. Aortic Valve Structurally normal aortic valve without significant sclerosis or stenosis. There is mild aortic regurgitation. Tricuspid Valve The tricuspid valve is normal in structure and function. There is mild tricuspid regurgitation. Pulmonary artery systolic pressure is normal. Pulmonic Valve Structurally normal pulmonic valve. There is trace pulmonic regurgitation. Pericardium Normal pericardium without effusion. No pleural effusion. Great Vessels Normal aortic root dimension. The aortic arch and great vessels are well seen and are normal. CONCLUSIONS 1. Normal EF of 60%. 2. Mild mitral regurgitation. 3. Mild tricuspid regurgitation. 4. Mild aortic regurgitation. 5. Trace pulmonic regurgitation. Mike Wagoner M.D. (Electronically Signed) Final Date: 20 June 2017 07:29 MEASUREMENTS (Male / Female) Normal Values 2D ECHO LV Diastolic Diameter PLAX 4.4 cm 4.2 - 5.9 / 3.9 - 5.3 cm LV Systolic Diameter PLAX 2.7 cm 2.1 - 4.0 cm LV Fractional Shortening PLAX 38.6 % 25 - 46 % LV Ejection Fraction 2D Teich 69.2 % IVS Diastolic Thickness 1.0 cm LVPW Diastolic Thickness 0.8 cm LV Relative Wall Thickness 0.4 RV Internal Dim ED PLAX 2.6 cm 1.9 - 3.8 cm LVOT Diameter 1.7 cm Aortic Root Diameter 2.9 cm LA Systolic Diameter LX 2.4 cm 3.0 - 4.0 / 2.7 - 3.8 cm LA Volume 23.0 cm 18 - 58 / 22 - 52 cm Ascending Aorta Diameter 3.3 cm DOPPLER AV Peak Velocity 135.0 cm/s AV Peak Gradient 7.3 mmHg AV Mean Velocity 88.2 cm/s AV Mean Gradient 4.0 mmHg AV Velocity Time Integral 29.0 cm AI Deceleration [place] 189.0 cm/s AI Peak Velocity 376.0 cm/s AI Pressure Half Time 584.0 ms AI Peak Gradient 56.6 mmHg LVOT Peak Velocity 108.0 cm/s LVOT Peak Gradient 4.7 mmHg LVOT Mean Velocity 65.1 cm/s LVOT Mean Gradient 2.0 mmHg LVOT Velocity Time Integral 23.4 cm LVOT Stroke Volume 53.1 cm AV Area Cont Eq vti 1.8 cm AV Area Cont Eq pk 1.8 cm MV Peak Velocity 97.1 cm/s MV Peak Gradient 3.8 mmHg MV Mean Velocity 55.9 cm/s MV Mean Gradient 1.0 mmHg Mitral E Point Velocity 95.8 cm/s Mitral A Point Velocity 50.3 cm/s Mitral E to A Ratio 1.9 MV PHT Velocity 101.0 cm/s MV Deceleration [place] 257.0 cm/s MV Pressure Half Time 117.9 ms MV Area PHT 1.9 cm MV Deceleration Time 165.0 ms TR Peak Velocity 299.0 cm/s TR Peak Gradient 35.8 mmHg Right Atrial Pressure 5.0 mmHg Pulmonary Artery Systolic Pressu 40.8 mmHg Right Ventricular Systolic Press 40.8 mmHg PV Peak Velocity 81.3 cm/s PV Peak Gradient 2.6 mmHg PV Mean Velocity 51.6 cm/s PV Mean Gradient 1.0 mmHg PV Velocity Time Integral 18.3 cm LV E' Lateral Velocity 10.1 cm/s Mitral E to LV E' Lateral Ratio 9.5 LV E' Septal Velocity 5.1 cm/s Mitral E to LV E' Septal Ratio 18.9
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
[2017-06-20 08:48] LABS: ABSOLUTE BASOPHIL COUNT 0 /CUMM (0.0-0.2); ABSOLUTE EOSINOPHIL COUNT 0 /CUMM (0.0-0.7); ABSOLUTE GRANULOCYTE CT 4.8 /CUMM (1.4-6.5); ABSOLUTE LYMPH COUNT 0.6 /CUMM (1.2-3.4); ABSOLUTE MONOCYTE COUNT 0.3 /CUMM (0.10-0.60); BASOPHIL % 0.2 % (0.0-2.0); EOSINOPHIL % 0 % (0-5); HEMATOCRIT 29.4 % (37-47); MEAN CORPUSCULAR HGB 29.3 PG (27.0-31.0); MEAN CORPUSCULAR HGB CONC 33.6 G/DL (33.0-37.0); MEAN CORPUSCULAR VOLUME 87.3 FL (81.0-99.0); MEAN PLATELET VOLUME 7.2 FL (7.4-10.4); RBC DISTRIBUTION WIDTH 14.6 % (11.5-14.5); RED BLOOD CELL CT 3.37 /CUMM (4.20-5.40); WHITE BLOOD CELL COUNT 5.6 /CUMM (4.8-10.8)
[2017-06-20 10:38] LABS: GRANULOCYTE % 84.6 % (42.2-75.2); PLATELET COUNT 659 /CUMM (130-400)
[2017-06-20 10:49] VITALS: BP 88/56
--- NOTE | 2017-06-20 13:42 | PN- Infect Dx ---
Subjective Subjective: Afebrile on steroids. She feels improved with decreased diarrhea and with stools reportedly with some form, though she did have 8 bowel movements reported yesterday. Objective Last 24 Hrs of Vital Signs/I&O Vital Signs Date Time Temp Pulse Resp B/P B/P Pulse O2 O2 Flow FiO2 Mean Ox Delivery Rate 06/20 1227 64 108/60 06/20 1049 88/56 06/20 0638 97.9 65 18 110/72 96 Room Air 06/19 2200 97.5 66 18 100/52 97 06/19 2122 72 100/52 06/19 1513 97.6 60 20 90/60 96 Intake & Output 06/20 1600 06/20 0800 06/20 0000 Intake Total 120 375 Output Total 400 400 Balance -280 -25 Intake, Oral 120 375 Number 2 2 Bowel Movements Output, Urine 400 400 Physical Exam Other Physical Findings: She appears comfortable in no acute distress Abdomen is soft, nontender Results Last 24 Hours of Lab Results: Laboratory Tests 06/2015 5 Chemistry Sodium (137 - 145 mmol/L) 138 Potassium (3.5 - 5.1 mmol/L) 4.7 Chloride (98 - 107 mmol/L) 99 Carbon Dioxide (22 - 30 mmol/L) 29 Anion Gap (5 - 16) 10 BUN (7 - 17 mg/dL) 15 Creatinine (0.5 - 1.0 mg/dL) 0.5 Estimated GFR (>60 ml/min) > 60 BUN/Creatinine Ratio (7 - 25 %) 30.0 H Triglycerides (<150 mg/dL) 164 H Cholesterol (<200 MG/DL) 139 LDL Cholesterol, Calc (65 - 129 mg/dL) 72 HDL Cholesterol (40 - 60 mg/dL) 35 L Cholesterol/HDL Ratio (0.00 - 4.23 %) 4.0 Hematology CBC w Diff NO MAN DIFF REQ NO MAN DIFF REQ WBC (4.8 - 10.8 /CUMM) 5.6 8.9 RBC (4.20 - 5.40 /CUMM) 3.37 L 3.39 L Hgb (12.0 - 16.0 G/DL) 9.9 L 9.6 L Hct (37 - 47 %) 29.4 L 29.8 L MCV (81.0 - 99.0 FL) 87.3 87.7 MCH (27.0 - 31.0 PG) 29.3 28.4 MCHC (33.0 - 37.0 G/DL) 33.6 32.4 L RDW (11.5 - 14.5 %) 14.6 H 14.9 H Plt Count (130 - 400 /CUMM) 659 H 684 H MPV (7.4 - 10.4 FL) 7.2 L 7.0 L Gran % (42.2 - 75.2 %) 84.6 H 83.1 H Lymphocytes % (20.5 - 51.1 %) 10.4 L 9.3 L Monocytes % (1.7 - 9.3 %) 4.8 7.5 Eosinophils % (0 - 5 %) 0 0 Basophils % (0.0 - 2.0 %) 0.2 0.1 Absolute Granulocytes (1.4 - 6.5 /CUMM) 4.8 7.4 H Absolute Lymphocytes (1.2 - 3.4 /CUMM) 0.6 L 0.8 L Absolute Monocytes (0.10 - 0.60 /CUMM) 0.3 0.7 H Absolute Eosinophils (0.0 - 0.7 /CUMM) 0 0 Absolute Basophils (0.0 - 0.2 /CUMM) 0 0 Serology Hep Bs Antigen (NONREACTIVE) NONREACTIVE Hep Bs Antibody (NONREACTIVE) NONREACTIVE TB Test (QFT) Mitogen Pending TB Test Mitogen - Nil Pending TB Test Antigen - Nil Pending TB Test (QFT) Interp Pending Biopsies from the recent sigmoidoscopy pending Last 24 Hours of Thomas Results: No recent cultures Assessment/Plan ID Impression: Overall improved, with stools reportedly less frequent and more formed and with her temperatures and white blood cell count remaining normal, on steroids, begun 5 days ago for a presumed flareup of her ulcerative colitis, based on the findings on the recent sigmoidoscopy, with the biopsies pending. She remains on po Vancomycin, now Day 11 of treatment for C. difficile colitis, initially treated with Fidaxomicin and Flagyl. Suggestion: 1. Further management of her ulcerative colitis per GI 2. Follow-up biopsies from her recent sigmoidoscopy 3. Discontinue po Vancomycin and follow off antibiotics
[2017-06-20 14:00] VITALS: BP 98/60
--- NOTE | 2017-06-20 15:22 | PN- Gastroenterology ---
Assessment/Plan GI Assessment/Recommendations: Assessment: Ms. Robertson is a 71 -year-old female admitted with an ulcerative colitis flare with superimposed C. difficile colitis who has now been on IV steroids for the past 5 days with some improvement in her diarrhea, but she continues to be symptomatic. While it is encouraging that she has started to form some solid stool I still feel there is a fairly good chance she will ultimately require a biological agent to induce and maintain her in remission. As she is now starting to have solid stool though I feel it would be reasonable to attempt to avoid using a biological agent while she is an inpatient and it could potentially be started if she is unable to be tapered off the steroids. Of note, while she does have some blood in her stool her hemoglobin has been stable and I am hopeful that this will improve as her colitis improves with continued use of IV steroids. Recommendations: 1. Continue IV solumederol through today and tomorrow and if she continues to have more formed stool would also start PO prednisone 30 mg po bid. 2. Low residue diet as tolerated. 3. Follow daily CBC and Ok to continue anticoagulation for now if medically indicated for a fib 4. Start oral iron supplementation 5. Follow up IFN gamma assay and hbsag/ab 6. From a GI perspective it is ok to use imodium as needed 7. Finish off a 2 week course of vancomycin for c diff 8. If diarrhea improves will give consideration to discharging her home in 1-2 days on a steroid taper and consideration will be given for using biological agents if she is not able to taper her steroids I will continue to follow this patient and make further recommendations based on her clinical course and results of blood work. Problem List: 1. Ulcerative colitis 2. Diarrhea 3. Anemia Subjective Subjective: Patient still with some diarrhea, but she feels well and she is starting to note some formation of her stool. She denies any abdominal pain and she is without any vomiting. She is tolerating an oral diet. She has noted a scant amount of blood in her stools well, but she is not passing clots. Objective Vital Signs and I&Os Vital Signs Date Time Temp Pulse Resp B/P B/P Pulse O2 O2 Flow FiO2 Mean Ox Delivery Rate 06/20 1400 97.6 62 20 98/60 98 06/20 1227 64 108/60 06/20 1049 88/56 06/20 0638 97.9 65 18 110/72 96 Room Air 06/190 97.5 66 18 100/52 97 06/19 2122 72 100/52 Intake & Output 06/20 1600 06/20 0400 06/19 1600 06/19 0400 06/18 1600 06/18 0400 Intake Total 520 375 710 662.4 2200 550 Output Total 053 094 3665 900 400 425 Balance -180 -25 -790 -237.6 1800 125 Intake, IV 210 162.4 1600 300 Intake, Oral 520 375 500 500 600 250 Number 4 2 6 2 4 2 Bowel Movements Output, Urine 409 993 4460 900 400 425 Physical Exam General Appearance: no apparent distress, thin Head: atraumatic, normal appearance Ears, Nose, Throat: normal pharynx Respiratory: normal breath sounds, chest non-tender, no respiratory distress Cardiovascular: irregularly irregular Abdomen: normal bowel sounds, soft, non-tender, no organomegaly Extremities: normal inspection, no edema Current Medications: Current Medications Sig/Franklyn Start time Last Medication Dose Route Stop Time Status Admin Acetaminophen 650 MG Q6-PRN PRN 06/07 2099 AC 06/17 PO 1705 Apixaban 2.5 MG BID 06/19 09 AC 06/20 PO 1035 Levothyroxine Sodium 0.025 MG DAILY AC 06/08 07 AC 06/20 PO 0552 Lidocaine 1 PAT DAILY 06/17 192 AC 06/19 EXT 0855 Mesalamine 4 GM AT BEDTIME 06/09 2100 AC 06/19 WA 2118 Mesalamine 1,000 MG 4 TIMES/DAY 06/08 0900 AC 06/20 PO 1433 Methylprednisolone 40 MG Q12 06/20 1330 AC 06/20 IV 1434 Methylprednisolone 40 MG Q12 06/15 2100 DC 06/19 IV 06/19 2199 2118 Metoprolol Tartrate 50 MG BID 06/17 1830 AC 06/20 PO 1227 Nystatin 5 ML 4 TIMES/DAY 06/15 1433 AC 06/20 PO 1433 Ondansetron HCl 4 MG Q8P PRN 06/07 191 AC 06/17 IV 1356 Potassium Chloride 40 MEQ DAILY 06/09 1630 AC 06/20 PO 1034 Vancomycin HCl 125 MG Q6 06/14 1816 AC 06/20 PO 06/24 0100 1220 Results Pertinent Lab Results: Laboratory Tests 06/2015 5 Chemistry Sodium (137 - 145 mmol/L) 138 Potassium (3.5 - 5.1 mmol/L) 4.7 Chloride (98 - 107 mmol/L) 99 Carbon Dioxide (22 - 30 mmol/L) 29 Anion Gap (5 - 16) 10 BUN (7 - 17 mg/dL) 15 Creatinine (0.5 - 1.0 mg/dL) 0.5 Estimated GFR (>60 ml/min) > 60 BUN/Creatinine Ratio (7 - 25 %) 30.0 H Triglycerides (<150 mg/dL) 164 H Cholesterol (<200 MG/DL) 139 LDL Cholesterol, Calc (65 - 129 mg/dL) 72 HDL Cholesterol (40 - 60 mg/dL) 35 L Cholesterol/HDL Ratio (0.00 - 4.23 %) 4.0 Hematology CBC w Diff NO MAN DIFF REQ NO MAN DIFF REQ WBC (4.8 - 10.8 /CUMM) 5.6 8.9 RBC (4.20 - 5.40 /CUMM) 3.37 L 3.39 L Hgb (12.0 - 16.0 G/DL) 9.9 L 9.6 L Hct (37 - 47 %) 29.4 L 29.8 L MCV (81.0 - 99.0 FL) 87.3 87.7 MCH (27.0 - 31.0 PG) 29.3 28.4 MCHC (33.0 - 37.0 G/DL) 33.6 32.4 L RDW (11.5 - 14.5 %) 14.6 H 14.9 H Plt Count (130 - 400 /CUMM) 659 H 684 H MPV (7.4 - 10.4 FL) 7.2 L 7.0 L Gran % (42.2 - 75.2 %) 84.6 H 83.1 H Lymphocytes % (20.5 - 51.1 %) 10.4 L 9.3 L Monocytes % (1.7 - 9.3 %) 4.8 7.5 Eosinophils % (0 - 5 %) 0 0 Basophils % (0.0 - 2.0 %) 0.2 0.1 Absolute Granulocytes (1.4 - 6.5 /CUMM) 4.8 7.4 H Absolute Lymphocytes (1.2 - 3.4 /CUMM) 0.6 L 0.8 L Absolute Monocytes (0.10 - 0.60 /CUMM) 0.3 0.7 H Absolute Eosinophils (0.0 - 0.7 /CUMM) 0 0 Absolute Basophils (0.0 - 0.2 /CUMM) 0 0 Serology Hep Bs Antigen (NONREACTIVE) NONREACTIVE Hep Bs Antibody (NONREACTIVE) NONREACTIVE TB Test (QFT) Mitogen Pending TB Test Mitogen - Nil Pending TB Test Antigen - Nil Pending TB Test (QFT) Interp Pending 06/19 06/18 06/18 0743 1555 0942 Chemistry Sodium (137 - 145 mmol/L) 140 Potassium (3.5 - 5.1 mmol/L) 4.4 Chloride (98 - 107 mmol/L) 104 Carbon Dioxide (22 - 30 mmol/L) 27 Anion Gap (5 - 16) 9 BUN (7 - 17 mg/dL) 12 Creatinine (0.5 - 1.0 mg/dL) 0.5 Estimated GFR (>60 ml/min) > 60 BUN/Creatinine Ratio (7 - 25 %) 24.0 Troponin I (< 0.11 ng/ml) < 0.01 TSH (0.270 - 4.200 uIU/mL) 1.380 Free T4 (0.78 - 2.44 ng/dL) 1.55 Total T3 (0.97 - 1.69 ng/mL) 0.71 L Thyroxine Binding Indx (23.5 - 40.5 % UPTAKE) 52.3 H Coagulation APTT (25 - 37 SEC) 82 H 83 H Hematology CBC w Diff NO MAN DIFF REQ WBC (4.8 - 10.8 /CUMM) 4.6 L RBC (4.20 - 5.40 /CUMM) 3.19 L Hgb (12.0 - 16.0 G/DL) 9.4 L Hct (37 - 47 %) 27.8 L MCV (81.0 - 99.0 FL) 87.2 MCH (27.0 - 31.0 PG) 29.5 MCHC (33.0 - 37.0 G/DL) 33.9 RDW (11.5 - 14.5 %) 14.9 H Plt Count (130 - 400 /CUMM) 599 H MPV (7.4 - 10.4 FL) 7.0 L Gran % (42.2 - 75.2 %) 80.3 H Lymphocytes % (20.5 - 51.1 %) 13.1 L Monocytes % (1.7 - 9.3 %) 6.3 Eosinophils % (0 - 5 %) 0 Basophils % (0.0 - 2.0 %) 0.3 Absolute Granulocytes (1.4 - 6.5 /CUMM) 3.7 Absolute Lymphocytes (1.2 - 3.4 /CUMM) 0.6 L Absolute Monocytes (0.10 - 0.60 /CUMM) 0.3 Absolute Eosinophils (0.0 - 0.7 /CUMM) 0 Absolute Basophils (0.0 - 0.2 /CUMM) 0 06/18 06/18 06/17 0829 0645 2200 Chemistry Sodium (137 - 145 mmol/L) 142 Potassium (3.5 - 5.1 mmol/L) 4.4 Chloride (98 - 107 mmol/L) 105 Carbon Dioxide (22 - 30 mmol/L) 27 Anion Gap (5 - 16) 10 BUN (7 - 17 mg/dL) 19 H Creatinine (0.5 - 1.0 mg/dL) 0.5 Estimated GFR (>60 ml/min) > 60 BUN/Creatinine Ratio (7 - 25 %) 38.0 H Troponin I Cancelled Cancelled Coagulation APTT (25 - 37 SEC) 21 L Hematology CBC w Diff NO MAN DIFF REQ WBC (4.8 - 10.8 /CUMM) 8.6 RBC (4.20 - 5.40 /CUMM) 3.40 L Hgb (12.0 - 16.0 G/DL) 9.7 L Hct (37 - 47 %) 29.6 L MCV (81.0 - 99.0 FL) 87.0 MCH (27.0 - 31.0 PG) 28.6 MCHC (33.0 - 37.0 G/DL) 32.9 L RDW (11.5 - 14.5 %) 14.9 H Plt Count (130 - 400 /CUMM) 669 H MPV (7.4 - 10.4 FL) 7.1 L Gran % (42.2 - 75.2 %) 80.5 H Lymphocytes % (20.5 - 51.1 %) 12.1 L Monocytes % (1.7 - 9.3 %) 7.1 Eosinophils % (0 - 5 %) 0.1 Basophils % (0.0 - 2.0 %) 0.2 Absolute Granulocytes (1.4 - 6.5 /CUMM) 6.9 H Absolute Lymphocytes (1.2 - 3.4 /CUMM) 1.0 L Absolute Monocytes (0.10 - 0.60 /CUMM) 0.6 Absolute Eosinophils (0.0 - 0.7 /CUMM) 0 Absolute Basophils (0.0 - 0.2 /CUMM) 0 Serology Hep Bs Antigen (NONREACTIVE) NONREACTIVE 06/17 06/17 [id number] Chemistry Troponin I (< 0.11 ng/ml) < 0.01 Coagulation APTT Cancelled
--- NOTE | 2017-06-20 20:45 | PN- Cardiology ---
Subjective Subjective: * No complaints * sinus rhythm * H/H is stable Objective Vital Signs and I&Os Vital Signs Date Time Temp Pulse Resp B/P B/P Pulse O2 O2 Flow FiO2 Mean Ox Delivery Rate 06/20 1400 97.6 62 20 98/60 98 06/20 1227 64 108/60 06/20 1049 88/56 06/20 0638 97.9 65 18 110/72 96 Room Air 06/19 2200 97.5 66 18 100/52 97 06/19 2122 72 100/52 Intake & Output 06/20 1600 06/20 0800 06/20 0000 06/19 1600 06/19 0000 Intake Total 600 120 375 550 160 662.4 Output Total 600 400 400 600 900 900 Balance 0 -280 -25 -50 -740 -237.6 Intake, IV 50 160 162.4 Intake, Oral 600 120 375 500 500 Number 3 2 2 3 3 2 Bowel Movements Output, Urine 600 400 400 600 900 900 Physical Exam: General: WD/WN female in NAD; alert and oriented x 3 HEENT: NC/AT, PERRL, EOMI Neck: no JVD, no carotid bruit Heart: RRR w/o murmur Lungs: clear bilaterally Abdomen: soft, midline scar, firm mass in midline, +ve bowel sounds Extremities: no edema Assessment/Plan Assessment/Plan * This patient had atrial fibrillation with rapid rate of unknown duration which spontaneously converted to a sinus rhythm. This dysrhythmia occured in the setting of hyperthyroidism. Continue Metoprolol 50mg BID. Would begin Eliquis for paroxysmal atrial fibrillation at 2.5mg BID. We will watch her H/H and if it continues to fall due to bleeding then Eliquis will need to be stopped and we will consider adding Sotolol instead of Metoprolol to help maintain a sinus rhythm. For now her H/H appears stable. Continue telemetry? Yes
[2017-06-20 22:30] VITALS: BP 102/72
[2017-06-21 06:42] VITALS: BP 140/84
--- NOTE | 2017-06-21 07:15 | PN- Student ---
Subjective Subjective: Pt is feeling well today. she has no complaints and denies abdominal pain, headache, chest pain and palpitations. pt cannot recall if she had diarrhea throughout the night, but nurse reports 1 BM well-formed with no overt blood. Per telemetry: pt was in sinus bradycardia throughout the night with the lowest HR at 45. no overnight events Objective Objective: Current Medications Sig/Franklyn Start time Last Medication Dose Route Stop Time Status Admin Acetaminophen 650 MG Q6-PRN PRN 06/07 2100 AC 06/17 PO 1705 Apixaban 2.5 MG BID 06/19 0900 AC 06/21 PO 1132 Ferrous Sulfate 325 MG DAILY 06/20 1820 AC 06/21 PO 1132 Levothyroxine Sodium 0.025 MG DAILY AC 06/08 0700 AC 06/21 PO 0542 Lidocaine 1 PAT DAILY 06/17 1925 AC 06/19 EXT 0855 Mesalamine 4 GM AT BEDTIME 06/09 2100 AC 06/20 [place] 2037 Mesalamine 1,000 MG 4 TIMES/DAY 06/08 0900 AC 06/21 PO 1131 Methylprednisolone 40 MG Q12 06/20 1330 DC 06/21 IV 1131 Metoprolol Tartrate 50 MG BID 06/17 1830 AC 06/21 PO 1132 Nystatin 5 ML 4 TIMES/DAY 06/15 1433 AC 06/21 PO 1131 Ondansetron HCl 4 MG Q8P PRN 06/07 1915 AC 06/17 IV 1356 Potassium Chloride 40 MEQ DAILY 06/09 1630 AC 06/21 PO 1132 Laboratory Tests 06/21 0645 Chemistry Sodium (137 - 145 mmol/L) 137 Potassium (3.5 - 5.1 mmol/L) 4.6 Chloride (98 - 107 mmol/L) 97 L Carbon Dioxide (22 - 30 mmol/L) 29 Anion Gap (5 - 16) 11 BUN (7 - 17 mg/dL) 13 Creatinine (0.5 - 1.0 mg/dL) 0.4 L Estimated GFR (>60 ml/min) > 60 BUN/Creatinine Ratio (7 - 25 %) 32.5 H Hematology CBC w Diff NO MAN DIFF REQ WBC (4.8 - 10.8 /CUMM) 5.4 RBC (4.20 - 5.40 /CUMM) 3.66 L Hgb (12.0 - 16.0 G/DL) 10.6 L Hct (37 - 47 %) 32.0 L MCV (81.0 - 99.0 FL) 87.5 MCH (27.0 - 31.0 PG) 28.9 MCHC (33.0 - 37.0 G/DL) 33.1 RDW (11.5 - 14.5 %) 14.7 H Plt Count (130 - 400 /CUMM) 710 H MPV (7.4 - 10.4 FL) 7.2 L Gran % (42.2 - 75.2 %) 79.4 H Lymphocytes % (20.5 - 51.1 %) 15.6 L Monocytes % (1.7 - 9.3 %) 4.9 Eosinophils % (0 - 5 %) 0 Basophils % (0.0 - 2.0 %) 0.1 Absolute Granulocytes (1.4 - 6.5 /CUMM) 4.3 Absolute Lymphocytes (1.2 - 3.4 /CUMM) 0.8 L Absolute Monocytes (0.10 - 0.60 /CUMM) 0.3 Absolute Eosinophils (0.0 - 0.7 /CUMM) 0 Absolute Basophils (0.0 - 0.2 /CUMM) 0 Vital Signs Date Time Temp Pulse Resp B/P B/P Pulse O2 O2 Flow FiO2 Mean Ox Delivery Rate 06/21 1429 97.1 60 18 110/70 95 Room Air 06/21 1132 61 100/54 06/21 0642 97.6 55 20 140/84 97 Room Air 06/20 2230 97.4 62 16 102/72 97 Room Air 06/20 2037 66 108/64 Intake & Output 06/21 1600 06/21 0800 06/21 0000 Intake Total 280 338 Output Total 1200 Balance -920 338 Intake, Oral 280 338 Number 1 Bowel Movements Output, Urine 1200 Patient 119 lb Weight Physical exam General appearance: awake, alert female in no acute distress CV: normal S1, S2. no murmurs, rubs, or gallops Respiratory: lungs clear to asculation bilaterally. no respiratory distress GI: abdomen soft and nontender Assessment/Plan Assessment: 71 year old female patient with history of Trip's thyroiditis and a recent diagnosis of ulcerative colitis presenting with persistent diarrhea since December. Pt tested positive for C.diff and was treated with vancomycin, which was d/c yesterday. She is recovering, and has fewer loose stools that are bloody but less watery. she was diagnosed with a.fib on admission and given metoprolol and heparin. the heparin has been discontinued and she was started on eliquis 2.5mg BID PO on 06/19 once her H&H stabilized. Plan: 1. Ulcerative colitis not responding to steroids -start infliximab -Hep B negative serology -TB results pending 2. C.diff -d/c vancomycin 3. normocytic anemia from blood loss -monitor stools for blood -ferrous sulfate 325mg daily PO -Hb & Hct are trending upward 4. new onset A.fib -eliquis 2.5 mg BID PO 5. trip's thyroititis -continue synthroid
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
[2017-06-21 08:08] LABS: ABSOLUTE BASOPHIL COUNT 0 /CUMM (0.0-0.2); ABSOLUTE EOSINOPHIL COUNT 0 /CUMM (0.0-0.7); ABSOLUTE GRANULOCYTE CT 4.3 /CUMM (1.4-6.5); ABSOLUTE LYMPH COUNT 0.8 /CUMM (1.2-3.4); ABSOLUTE MONOCYTE COUNT 0.3 /CUMM (0.10-0.60); BASOPHIL % 0.1 % (0.0-2.0); EOSINOPHIL % 0 % (0-5); GRANULOCYTE % 79.4 % (42.2-75.2); MEAN CORPUSCULAR HGB 28.9 PG (27.0-31.0); MEAN CORPUSCULAR HGB CONC 33.1 G/DL (33.0-37.0); MEAN CORPUSCULAR VOLUME 87.5 FL (81.0-99.0); MEAN PLATELET VOLUME 7.2 FL (7.4-10.4); PLATELET COUNT 710 /CUMM (130-400); RBC DISTRIBUTION WIDTH 14.7 % (11.5-14.5); RED BLOOD CELL CT 3.66 /CUMM (4.20-5.40); WHITE BLOOD CELL COUNT 5.4 /CUMM (4.8-10.8)
[2017-06-21] MEDS ORDERED: FERROUS SULFAT325 M2 PO (10:22)
[2017-06-21] MEDS ORDERED: ELIQUIS2.5 M1 PO (10:22)
[2017-06-21] MEDS ORDERED: METOPROLOL TART50 M1 PO (10:22)
--- NOTE | 2017-06-21 10:23 | Patient Discharge Instructions ---
Discharge Instructions General Discharge Information You were seen/treated for: acute exacerbation ulcerative colitis c. diff colitis new onset afib You had these procedures: echocardiogram colonoscopy Special Instructions: 1. please follow up with your PCP in one week 2. please follow up with cardiology Dr. Wagoner in one week 3. please follow up with Dr. Iftikhar IRAHETA in 1-2 weeks 4. please continue on low fiber diet Diet Continue normal diet: No Recommended Diet: Low Residue Activity Full Activity/No Limits: Yes (as tolerated) Acute Coronary Syndrome Inclusion Criteria At DC or during hospital stay patient has or had the following: ACS DIAGNOSIS No Discharge Core Measures Meds if any: Prescribed or Continued at Discharge Meds if any: NOT Prescribed or Continued at Discharge Congestive Heart Failure Inclusion Criteria At DC or during hospital stay patient has or had the following: CHF DIAGNOSIS No Discharge Core Measures Meds if any: Prescribed or Continued at Discharge Meds if any: NOT Prescribed or Continued at Discharge Cerebrovascular accident Inclusion Criteria At DC or during hospital stay patient has or had the following: CVA/TIA Diagnosis No Discharge Core Measures Meds if any: Prescribed or Continued at Discharge Meds if any: NOT Prescribed or Continued at Discharge Venous thromboembolism Inclusion Criteria VTE Diagnosis No VTE Type NONE VTE Confirmed by (Test) NONE Discharge Core Measures - Per Current guidelines, there needs to be overlap - treatment for the first 5 days of Warfarin therapy. - If discharged on Warfarin prior to 5 days of - overlap therapy, the patient will need to be - assessed for post discharge needs including - *Post discharge parental anticoagulation - *Warfarin and/or parental anticoagulation education - *Follow up date to check INR post discharge At least 5 days overlap therapy as Inpatient No Meds if any: Prescribed or Continued at Discharge Note: Overlap Therapy is Warfarin and Anticoagulant Meds if any: NOT Prescribed or Continued at Discharge
--- NOTE | 2017-06-21 12:48 | PN- Att Addend ---
Attending Addendum Attending Brief Note Mrs. Robertson was interviewed and examined. Her EMR was reviewed. She denies fever, chills, abdominal pain, and further diarrhea. She denies chest pain, SOB , palpitations, and lightheadedness. She has remained afebrile. She has had an episode of bradycardia with a rate in the mid 50s. She has had no further episodes of borderline systolic blood pressure. She continues to saturate well on room air. She has had no diarrhea today. She is in no acute distress. Pulmonary exam shows equal breath sounds without rales or rhonchi. Cardiac exam reveals a regular rate and rhythm. The abdomen has normal bowel sounds and is soft and nontender. WBC continues to be normal and H&H continues to improve. Electrolytes and renal function are satisfactory. Hepatitis studies and interferon gamma are pending as is her pathology report. -I agree with Dr. Buitrago that we should continue parenteral steroids through tomorrow and start prednisone in the a.m. We're continuing with oral and rectal mesalamine. We are continuing her oral vancomycin to complete a 14 day course. -She remains in sinus rhythm with some mild bradycardic episodes after an episode of paroxysmal atrial fibrillation. We are continuing metoprolol 50 mg twice a day and apixaban 2.5 mg twice a day. We are continuing telemetry. -We are continuing to follow her CBC. WBC continued to be normal and her H&H is slowly increasing toward normal levels. I agree with the addition of iron to her medical regimen.
[2017-06-21 14:29] VITALS: BP 110/70
--- NOTE | 2017-06-21 14:47 | PN- Gastroenterology ---
Assessment/Plan GI Assessment/Recommendations: Assessment: Ms. Robertson is a 71 year old female with ulcerative colitis who is finally starting to have more formed bowel movements on what is now day 6 of IV steroids. She is also without significant bleeding on Eliquis and her hgb is stable. At this point would make the transition to pur her on oral medications and she can hopefully be discharged in 24-48 hours and if she starts to flare as an outpatient as the steroids are tapered will then start remicade as an outpatient. Recommendations: 1. One more dose of IV solumederol this morning and then start prednisone 60 mg daily 2. Finish off a 14 day course of vancomycin. 3. Continue 5-ASA PO/RI at current dose 4. Follow daily CBC 5. Diet as tolerated 6. OK to use imodium as needed 7. If she doesn't have a significant flare of her symptoms on oral prednisone would d/c home in the am with a prednisone taper decreasing by 10 mg a week and a prescription for lialda 1.2 gram tabs (two tabs po bid) in place of the pentasa she is getting in house and would continue rowasa enemas for another 2 weeks and she should follow up in me in 1-2 weeks. I will continue to follow this patient and make further recommendations based on her clinical course and results of repeat blood work. Problem List: 1. Diarrhea 2. Ulcerative colitis 3. Colitis 4. C. difficile colitis Subjective Subjective: pt starting to notice more formed stool. no abdominal pain and she otherwise feels well. no significant rectal bleeding. Objective Vital Signs and I&Os Vital Signs Date Time Temp Pulse Resp B/P B/P Pulse O2 O2 Flow FiO2 Mean Ox Delivery Rate 06/21 1429 97.1 60 18 110/70 95 Room Air 06/21 1132 61 100/54 06/21 0642 97.6 55 20 140/84 97 Room Air 06/20 2230 97.4 62 16 102/72 97 Room Air 06/20 2037 66 108/64 Intake & Output 06/21 0400 06/20 1600 06/20 0400 06/19 040 Intake Total 280 338 720 375 710 662.4 Output Total 1200 7764 596 0529 900 Balance -920 338 -280 -25 -790 -237.6 Intake, IV 210 162.4 Intake, Oral 280 338 720 375 500 500 Number 1 5 2 6 2 Bowel Movements Output, Urine 1200 2063 053 7381 900 Patient 119 lb Weight Physical Exam General Appearance: well developed/nourished, no apparent distress, comfortable Head: atraumatic, normal appearance Neck: normal inspection, supple, full range of motion Respiratory: normal breath sounds Cardiovascular: regular rate/rhythm Abdomen: normal bowel sounds, soft, non-tender, no organomegaly Extremities: no edema Current Medications: Current Medications Sig/Franklyn Start time Last Medication Dose Route Stop Time Status Admin Acetaminophen 650 MG Q6-PRN PRN 06/07 2100 AC 06/17 PO 1705 Apixaban 2.5 MG BID 06/19 0900 AC 06/21 PO 1132 Ferrous Sulfate 325 MG DAILY 06/20 1820 AC 06/21 PO 1132 Levothyroxine Sodium 0.025 MG DAILY AC 06/08 0700 AC 06/21 PO 0542 Lidocaine 1 PAT DAILY 06/17 1925 AC 06/19 EXT 0855 Mesalamine 4 GM AT BEDTIME 06/09 2100 AC 06/20 RI 2037 Mesalamine 1,000 MG 4 TIMES/DAY 06/08 0900 AC 06/21 PO 1131 Methylprednisolone 40 MG Q12 06/20 1330 DC 06/21 IV 1131 Metoprolol Tartrate 50 MG BID 06/17 1830 AC 06/21 PO 1132 Nystatin 5 ML 4 TIMES/DAY 06/15 1433 AC 06/21 PO 1131 Ondansetron HCl 4 MG Q8P PRN 06/07 1915 AC 06/17 IV 1356 Potassium Chloride 40 MEQ DAILY 06/09 1630 AC 06/21 PO 1132 Vancomycin HCl 125 MG Q6 06/14 1816 DC 06/20 PO 06/24 0100 1220 Results Pertinent Lab Results: Laboratory Tests 06/21 06/20 0645 0615 Chemistry Sodium (137 - 145 mmol/L) 137 138 Potassium (3.5 - 5.1 mmol/L) 4.6 4.7 Chloride (98 - 107 mmol/L) 97 L 99 Carbon Dioxide (22 - 30 mmol/L) 29 29 Anion Gap (5 - 16) 11 10 BUN (7 - 17 mg/dL) 13 15 Creatinine (0.5 - 1.0 mg/dL) 0.4 L 0.5 Estimated GFR (>60 ml/min) > 60 > 60 BUN/Creatinine Ratio (7 - 25 %) 32.5 H 30.0 H Triglycerides (<150 mg/dL) 164 H Cholesterol (<200 MG/DL) 139 LDL Cholesterol, Calc (65 - 129 mg/dL) 72 HDL Cholesterol (40 - 60 mg/dL) 35 L Cholesterol/HDL Ratio (0.00 - 4.23 %) 4.0 Hematology CBC w Diff NO MAN DIFF REQ NO MAN DIFF REQ WBC (4.8 - 10.8 /CUMM) 5.4 5.6 RBC (4.20 - 5.40 /CUMM) 3.66 L 3.37 L Hgb (12.0 - 16.0 G/DL) 10.6 L 9.9 L Hct (37 - 47 %) 32.0 L 29.4 L MCV (81.0 - 99.0 FL) 87.5 87.3 MCH (27.0 - 31.0 PG) 28.9 29.3 MCHC (33.0 - 37.0 G/DL) 33.1 33.6 RDW (11.5 - 14.5 %) 14.7 H 14.6 H Plt Count (130 - 400 /CUMM) 710 H 659 H MPV (7.4 - 10.4 FL) 7.2 L 7.2 L Gran % (42.2 - 75.2 %) 79.4 H 84.6 H Lymphocytes % (20.5 - 51.1 %) 15.6 L 10.4 L Monocytes % (1.7 - 9.3 %) 4.9 4.8 Eosinophils % (0 - 5 %) 0 0 Basophils % (0.0 - 2.0 %) 0.1 0.2 Absolute Granulocytes (1.4 - 6.5 /CUMM) 4.3 4.8 Absolute Lymphocytes (1.2 - 3.4 /CUMM) 0.8 L 0.6 L Absolute Monocytes (0.10 - 0.60 /CUMM) 0.3 0.3 Absolute Eosinophils (0.0 - 0.7 /CUMM) 0 0 Absolute Basophils (0.0 - 0.2 /CUMM) 0 0 Serology TB Test (QFT) Mitogen Pending TB Test Mitogen - Nil Pending TB Test Antigen - Nil Pending TB Test (QFT) Interp Pending 06/19 2124 Hematology CBC w Diff NO MAN DIFF REQ WBC (4.8 - 10.8 /CUMM) 8.9 RBC (4.20 - 5.40 /CUMM) 3.39 L Hgb (12.0 - 16.0 G/DL) 9.6 L Hct (37 - 47 %) 29.8 L MCV (81.0 - 99.0 FL) 87.7 MCH (27.0 - 31.0 PG) 28.4 MCHC (33.0 - 37.0 G/DL) 32.4 L RDW (11.5 - 14.5 %) 14.9 H Plt Count (130 - 400 /CUMM) 684 H MPV (7.4 - 10.4 FL) 7.0 L Gran % (42.2 - 75.2 %) 83.1 H Lymphocytes % (20.5 - 51.1 %) 9.3 L Monocytes % (1.7 - 9.3 %) 7.5 Eosinophils % (0 - 5 %) 0 Basophils % (0.0 - 2.0 %) 0.1 Absolute Granulocytes (1.4 - 6.5 /CUMM) 7.4 H Absolute Lymphocytes (1.2 - 3.4 /CUMM) 0.8 L Absolute Monocytes (0.10 - 0.60 /CUMM) 0.7 H Absolute Eosinophils (0.0 - 0.7 /CUMM) 0 Absolute Basophils (0.0 - 0.2 /CUMM) 0 Serology Hep Bs Antigen (NONREACTIVE) NONREACTIVE Hep Bs Antibody (NONREACTIVE) NONREACTIVE 06/19 06/18 0743 1555 Chemistry Sodium (137 - 145 mmol/L) 140 Potassium (3.5 - 5.1 mmol/L) 4.4 Chloride (98 - 107 mmol/L) 104 Carbon Dioxide (22 - 30 mmol/L) 27 Anion Gap (5 - 16) 9 BUN (7 - 17 mg/dL) 12 Creatinine (0.5 - 1.0 mg/dL) 0.5 Estimated GFR (>60 ml/min) > 60 BUN/Creatinine Ratio (7 - 25 %) 24.0 TSH (0.270 - 4.200 uIU/mL) 1.380 Free T4 (0.78 - 2.44 ng/dL) 1.55 Total T3 (0.97 - 1.69 ng/mL) 0.71 L Thyroxine Binding Indx (23.5 - 40.5 % UPTAKE) 52.3 H Coagulation APTT (25 - 37 SEC) 82 H 83 H Hematology CBC w Diff NO MAN DIFF REQ WBC (4.8 - 10.8 /CUMM) 4.6 L RBC (4.20 - 5.40 /CUMM) 3.19 L Hgb (12.0 - 16.0 G/DL) 9.4 L Hct (37 - 47 %) 27.8 L MCV (81.0 - 99.0 FL) 87.2 MCH (27.0 - 31.0 PG) 29.5 MCHC (33.0 - 37.0 G/DL) 33.9 RDW (11.5 - 14.5 %) 14.9 H Plt Count (130 - 400 /CUMM) 599 H MPV (7.4 - 10.4 FL) 7.0 L Gran % (42.2 - 75.2 %) 80.3 H Lymphocytes % (20.5 - 51.1 %) 13.1 L Monocytes % (1.7 - 9.3 %) 6.3 Eosinophils % (0 - 5 %) 0 Basophils % (0.0 - 2.0 %) 0.3 Absolute Granulocytes (1.4 - 6.5 /CUMM) 3.7 Absolute Lymphocytes (1.2 - 3.4 /CUMM) 0.6 L Absolute Monocytes (0.10 - 0.60 /CUMM) 0.3 Absolute Eosinophils (0.0 - 0.7 /CUMM) 0 Absolute Basophils (0.0 - 0.2 /CUMM) 0 Imaging/Other Studies: A. COLON BIOPSY AT 60 CM: PORTIONS OF COLONIC MUCOSA WITH MODERATE TO MARKED CHRONIC ACTIVE COLITIS, AND SEPARATE PORTION OF FIBRINOPURULENT EXUDATE. SEE NOTE. B. COLON BIOPSY AT 50 CM: MODERATE TO MARKED CHRONIC ACTIVE COLITIS. SEE NOTE. C. SIGMOID COLON BIOPSY AT 30 CM: MODERATE TO MARKED CHRONIC ACTIVE COLITIS. SEE NOTE. D. RECTOSIGMOID COLON BIOPSY: MODERATE CHRONIC ACTIVE COLITIS. SEE NOTE. E. RECTUM BIOPSY: MILD CHRONIC COLITIS WITH MINIMAL ACUTE ACTIVITY. SEE NOTE.
--- NOTE | 2017-06-21 20:28 | PN- Cardiology ---
Subjective Subjective: * No complaints * sinus rhythm * H/H is improving Objective Vital Signs and I&Os Vital Signs Date Time Temp Pulse Resp B/P B/P Pulse O2 O2 Flow FiO2 Mean Ox Delivery Rate 06/21 1429 97.1 60 18 110/70 95 Room Air 06/21 1132 61 100/54 06/21 0642 97.6 55 20 140/84 97 Room Air 06/20 2230 97.4 62 16 102/72 97 Room Air 06/20 2037 66 108/64 Intake & Output 06/21 1600 06/21 0800 06/21 0000 06/20 1600 06/20 0800 06/20 0000 Intake Total 600 280 338 600 120 375 Output Total 400 1200 600 400 400 Balance 200 -920 338 0 -280 -25 Intake, Oral 600 280 338 600 120 375 Number 1 1 3 2 2 Bowel Movements Output, Urine 400 1200 600 400 400 Patient 119 lb Weight Physical Exam: General: WD/WN female in NAD; alert and oriented x 3 HEENT: NC/AT, PERRL, EOMI Neck: no JVD, no carotid bruit Heart: RRR w/o murmur Lungs: clear bilaterally Abdomen: soft, midline scar, firm mass in midline, +ve bowel sounds Extremities: no edema Assessment/Plan Assessment/Plan * This patient had atrial fibrillation with rapid rate of unknown duration which spontaneously converted to a sinus rhythm. This dysrhythmia occured in the setting of hyperthyroidism. Continue Metoprolol 50mg BID. Continue Eliquis for paroxysmal atrial fibrillation at 2.5mg BID. We will watch her H/H and if it continues to fall due to bleeding then Eliquis will need to be stopped and we will consider adding Sotolol instead of Metoprolol to help maintain a sinus rhythm. For now her H/H appears to be improving. Stable for DC from a cardiac standpoint. DC telemetry and follow up in the office in one week. Continue telemetry? No
[2017-06-21 23:01] VITALS: BP 110/62
[2017-06-22 06:53] VITALS: BP 108/66
[2017-06-22] MEDS ORDERED: CANASA1000 M1 RC (07:25)
[2017-06-22 08:07] LABS: ABSOLUTE BASOPHIL COUNT 0 /CUMM (0.0-0.2); ABSOLUTE EOSINOPHIL COUNT 0 /CUMM (0.0-0.7); ABSOLUTE GRANULOCYTE CT 6.9 /CUMM (1.4-6.5); ABSOLUTE LYMPH COUNT 1.7 /CUMM (1.2-3.4); ABSOLUTE MONOCYTE COUNT 0.4 /CUMM (0.10-0.60); BASOPHIL % 0.4 % (0.0-2.0); EOSINOPHIL % 0.3 % (0-5); GRANULOCYTE % 75.6 % (42.2-75.2); HEMATOCRIT 35.7 % (37-47); MEAN CORPUSCULAR HGB 29.2 PG (27.0-31.0); MEAN CORPUSCULAR HGB CONC 33.3 G/DL (33.0-37.0); MEAN CORPUSCULAR VOLUME 87.6 FL (81.0-99.0); MEAN PLATELET VOLUME 7.1 FL (7.4-10.4); RBC DISTRIBUTION WIDTH 15.3 % (11.5-14.5); RED BLOOD CELL CT 4.08 /CUMM (4.20-5.40)
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
[2017-06-22 09:06] LABS: WHITE BLOOD CELL COUNT 9.2 /CUMM (4.8-10.8)
[2017-06-22 09:07] LABS: PLATELET COUNT 763 /CUMM (130-400)
--- NOTE | 2017-06-22 11:00 | PN- Infect Dx ---
Subjective Subjective: Afebrile on steroids. She feels well with semi-formed stools reported, 1 yesterday and 1 overnight. She does, however, note inability to control her bowel movements. Objective Last 24 Hrs of Vital Signs/I&O Vital Signs Date Time Temp Pulse Resp B/P B/P Pulse O2 O2 Flow FiO2 Mean Ox Delivery Rate 06/22 1002 67 108/66 06/22 0653 98.2 67 20 108/66 96 Room Air 06/22 0000 Room Air 06/21 2301 98.0 46 20 110/62 97 Room Air 06/21 2120 64 108/62 06/21 1429 97.1 60 18 110/70 95 Room Air 06/21 1132 61 100/54 Intake & Output 06/22 1600 06/22 0800 06/22 0000 Intake Total 100 400 Output Total 1000 350 Balance -900 50 Intake, Oral 100 400 Number 1 Bowel Movements Output, Urine 1000 350 Patient 117 lb Weight Weight Bed scale Measurement Method Physical Exam Other Physical Findings: She appears comfortable in no acute distress Lungs are clear Heart regular rhythm with no murmur Abdomen is soft, nontender with positive bowel sounds Results Last 24 Hours of Lab Results: Laboratory Tests 06/22 0715 Hematology CBC w Diff NO MAN DIFF REQ WBC (4.8 - 10.8 /CUMM) 9.2 RBC (4.20 - 5.40 /CUMM) 4.08 L Hgb (12.0 - 16.0 G/DL) 11.9 L Hct (37 - 47 %) 35.7 L MCV (81.0 - 99.0 FL) 87.6 MCH (27.0 - 31.0 PG) 29.2 MCHC (33.0 - 37.0 G/DL) 33.3 RDW (11.5 - 14.5 %) 15.3 H Plt Count (130 - 400 /CUMM) 763 H MPV (7.4 - 10.4 FL) 7.1 L Gran % (42.2 - 75.2 %) 75.6 H Lymphocytes % (20.5 - 51.1 %) 18.8 L Monocytes % (1.7 - 9.3 %) 4.9 Eosinophils % (0 - 5 %) 0.3 Basophils % (0.0 - 2.0 %) 0.4 Absolute Granulocytes (1.4 - 6.5 /CUMM) 6.9 H Absolute Lymphocytes (1.2 - 3.4 /CUMM) 1.7 Absolute Monocytes (0.10 - 0.60 /CUMM) 0.4 Absolute Eosinophils (0.0 - 0.7 /CUMM) 0 Absolute Basophils (0.0 - 0.2 /CUMM) 0 Colon biopsies from the recent sigmoidoscopy revealed marked to moderate chronic active colitis Last 24 Hours of Thomas Results: No recent cultures Assessment/Plan ID Impression: Continues to improve, with stools now semi-formed and less frequent, though she does report inability to control her bowel movements. She remains afebrile with a normal white blood cell count (on steroids for the past week for a flareup of her ulcerative colitis) and off antibiotics after 11 days of treatment for C. difficile. Her biopsy results are noted, with no evidence for pseudomembranous colitis. Suggestion: 1. Further management of her ulcerative colitis per GI 2. Continue to follow off antibiotics Will no longer follow at this time but please call with any questions
[2017-06-22] MEDS ORDERED: ELIQUIS2.5 M1 PO (13:27)
[2017-06-22] MEDS ORDERED: METOPROLOL TART50 M1 PO (13:27)
[2017-06-22] MEDS ORDERED: PREDNISONE20 M1 PO ×2 (13:27→13:55)
[2017-06-22] MEDS ORDERED: ROWASA 4 G4 GM/60 ML PR (13:27)
[2017-06-22 15:15] VITALS: BP 104/68
--- NOTE | 2017-06-22 17:07 | PN- Cardiology ---
Subjective Subjective: * No complaints. No abdominal discomfort. Patient is unsure why she remains in the hospital. * sinus rhythm * Improving H/H on Eliquis Objective Vital Signs and I&Os Vital Signs Date Time Temp Pulse Resp B/P B/P Pulse O2 O2 Flow FiO2 Mean Ox Delivery Rate 06/22 1515 98.7 53 20 104/68 99 Room Air 06/22 1002 67 108/66 06/22 0653 98.2 67 20 108/66 96 Room Air 06/22 0000 Room Air 06/21 2301 98.0 46 20 110/62 97 Room Air 06/21 2120 64 108/62 Intake & Output 06/22 1600 06/22 0800 06/22 0000 06/21 1600 06/21 0800 06/21 0000 Intake Total 450 100 400 600 280 338 Output Total 350 1000 375 930 5111 Balance 100 -900 50 200 -920 338 Intake, Oral 450 100 400 600 280 338 Number 2 1 1 1 Bowel Movements Output, Urine [id number] Patient 117 lb 119 lb Weight Weight Bed scale Measurement Method Physical Exam: General: WD/WN female in NAD; alert and oriented x 3 HEENT: NC/AT, PERRL, EOMI Neck: no JVD, no carotid bruit Heart: RRR w/o murmur Lungs: clear bilaterally Abdomen: soft, midline scar, firm mass in midline, +ve bowel sounds Extremities: no edema Assessment/Plan Assessment/Plan * This patient had atrial fibrillation with rapid rate of unknown duration which spontaneously converted to a sinus rhythm. This dysrhythmia occured in the setting of hyperthyroidism. Continue Metoprolol 50mg BID. Continue Eliquis for paroxysmal atrial fibrillation at 2.5mg BID. We will watch her H/H and if it continues to fall due to bleeding then Eliquis will need to be stopped and we will consider adding Sotolol instead of Metoprolol to help maintain a sinus rhythm. For now her H/H appears to be improving. Stable for DC from a cardiac standpoint. DC telemetry and follow up in the office in one week. Continue telemetry? No
[2017-06-22 23:52] VITALS: BP 104/66
[2017-06-23 06:53] VITALS: BP 106/64
[2017-06-23 08:26] VITALS: BP 110/60
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
--- NOTE | 2017-06-23 10:47 | PN- Att Addend ---
Attending Addendum Attending Brief Note Mrs. Robertson was interviewed and examined. Her EMR was reviewed. She is feeling well today and specifically denies fever, chills, abdominal pain, chest pain, SOB, lightheadedness, and palpitations. Her vital signs were reviewed and all are stable and satisfactory. Her physical exam is essentially unchanged and also satisfactory. There were no laboratory studies to review today. Mrs. Robertson is stable for discharge. We will continue to treat her UC and her PAF. Her CMR was reviewed and signed. She will be seen in a transition visit within the next 2 weeks.
[2017-06-23] MEDS ORDERED: FERROUS SULFAT325 M2 PO (13:31)
[2017-06-23] MEDS ORDERED: PREDNISONE20 M1 PO (13:31)
[2017-06-23] MEDS ORDERED: ROWASA 4 G4 GM/60 ML PR (13:31)
[2017-06-23] MEDS ORDERED: METOPROLOL TART50 M1 PO (13:31)
[2017-06-23] MEDS ORDERED: ELIQUIS2.5 M1 PO (13:31)
== END 2017-06-23 13:50 | disposition home health service (06) | DRG 372 ==
LOC: ERH 11:06 → ERHI 17:15 → 1NO 17:15 → 2NA 17:15 → ENRESERV 19:09 → ENTRNSPT 19:44 → EDTRNSPTSTS 20:03 → EDTRNSPT 20:03 → 2NA 20:24 → CMPTRNSPT 20:34 → 2NA 06-08 08:20 → 1NO 06-17 12:47 → ENPENDDIS 06-23 11:54 → ENTRNSPT 06-23 13:33 → EDTRNSPT 06-23 13:46 → EDTRNSPTSTS 06-23 13:46 → 1NO 06-23 13:50 → CMPTRNSPT 06-23 13:57
PROVIDERS: Dermatology; Internal Medicine; Internal Medicine Hematology & Oncology; Physician Assistant Medical; Student in an Organized Health Care Education/Training Program
PROC: 0DBP8ZX Excision of Rectum, Via Natural or Artificial Opening Endoscopic, Diagnostic (ICD-10-PCS; principal; 2017-06-15)
PROC: 0DBN8ZX Excision of Sigmoid Colon, Via Natural or Artificial Opening Endoscopic, Diagnostic (ICD-10-PCS; 2017-06-15)
DX: A04.72 Enterocolitis due to Clostridium difficile, not specified as recurrent (principal); E44.0 Moderate protein-calorie malnutrition; E22.2 Syndrome of inappropriate secretion of antidiuretic hormone; I48.0 Paroxysmal atrial fibrillation; G81.91 Hemiplegia, unspecified affecting right dominant side; K51.018 Ulcerative (chronic) pancolitis with other complication; D64.9 Anemia, unspecified; K92.1 Melena; D72.825 Bandemia; E06.3 Autoimmune thyroiditis; R19.7 Diarrhea, unspecified; E80.6 Other disorders of bilirubin metabolism; E86.9 Volume depletion, unspecified; E87.6 Hypokalemia; H53.2 Diplopia; Z87.820 Personal history of traumatic brain injury; M85.80 Other specified disorders of bone density and structure, unspecified site; Z85.828 Personal history of other malignant neoplasm of skin
CPT/HCPCS: 1NP; 2NAP; 2NASP; 83921; 84133; 84300; 86480; 87493; 36415; 36592; 74177; 81001; 82436; 82570; 83630; 87040; 87045; 93005; 93010; 93306; 96361; 96374; 97110-GO; 97112-GO; 97116-GO; 97162-GP; 97530-GO; J0131; J0696; J1644; J1650; J2405; J2920; J7042